=== PATIENT | female | born 1935 | race Caucasian/White ===

== ENCOUNTER 2025-01-10 14:00 | Outpatient (RCR) | payer MEDICARE, SELFPAY ==
[2024-12-27 13:32] VITALS: BP 132/95; PULSE 83; RESP 18; TEMP 36.3; BMI 44.0
--- NOTE | 2024-12-28 12:16 | WC ---
PHOTO 12/27/24 LLE EDEMA
--- NOTE | 2024-12-28 12:16 | WC ---
PHOTO 12/27/24 RLE EDEMA
--- NOTE | 2024-12-29 16:49 | HP.PCM_ITS ---
History of Present Illness Date of Service: 12/27/24 Chief Complaint: Venous stasis dermatitis of the lower extremities bilaterally History of Wound: This is an 89-year-old obese female who presented with a history of swelling and edema in her lower extremities, as well as venous stasis dermatitis in the gaiter areas bilaterally. The left lower extremity was more severely affected. The patient possesses graduated compression stockings, but has not been wearing them. She is obese, with a BMI of 44.0. Her activity is limited. She spends a great deal of each day sitting in idle fashion. She sleeps on a flat mattress at night. She has a long history of swelling and edema in her lower extremities. She denies a history of thrombophlebitis. She has had episodes of cellulitis in her lower extremities in the past, the most recent of which was treated with oral doxycycline. Her primary care physician has placed her on Lasix. Treatment of the dermatitic changes in the lower extremities has recently been by means of ABD's and Kerlix, as well as topical Aquaphor. [facility] Medical History Congestive heart failure Obstructive sleep apnea Diabetes mellitus type 2 with complications Hypothyroidism Hypertension Morbid obesity with BMI of 40.0-44.9, adult Lipodermatosclerosis of left lower extremity Schwartz phlebectatica paraplantaris Venous stasis dermatitis of both lower extremities Edema of both lower extremities Swelling of both lower extremities Home Medications ?Medication ?Instructions ?Recorded ?Last Taken ?Type amlodipine 5 mg tablet 5 mg PO DAILY ##30 09/08/13 Unknown Rx ferrous sulfate 325 mg (65 mg 325 mg PO DAILY@0800 ##3 0 09/08/13 Unknown Rx iron) tablet glimepiride 4 mg tablet 4 mg PO BREAKFAST ##30 09/08 Unknown Rx hydrocodone-acetaminophen 5-325mg 1 - 2 tab PO Q4H PRN PRN PAIN ##60 09/08/13 Unknown Rx 5mg-325mg losartan 100 mg tablet 100 mg PO DAILY ##30 3 Unknown Rx multivitamin,qi-vqjt-oyofvmyw 27 1 tab PO DAILY@0800 # #30 09/08/13 Unknown Rx mg-0.4 mg tablet (Therems-M) potassium chloride 20 mEq 20 meq PO DAILY ##30 3 Unknown Rx tablet,extended release(part/cryst) (Klor-Con M) thyroid (pork) 60 mg tablet 90 mg (1.5 x 60 mg) PO FRANCISCO LY@0600 09/08/13 Unknown Rx ([place] Thyroid) ##60 hydrochlorothiazide 25 mg tablet 25 mg PO DAILY #30 ta bs 09/09/13 Unknown Rx hydralazine 25 mg tablet 25 mg PO TID 12/27/24 Unknow n History levothyroxine 100 mcg tablet 100 mcg PO DAILY 12/27/24 Unknown History Allergy/AdvReac Type Severity Reaction Status Date / Time celecoxib (From Celebrex) Allergy Other Verified 12/27/24 13:44 ciprofloxacin (From Cipro) Allergy Itching Verified 12/27/24 13:44 ciprofloxacin HCl (From Allergy Itching Verified 12/27/24 13:44 Cipro) codeine Allergy Itching Verified 12/27/24 13:44 rofecoxib (From Vioxx) Allergy Other Verified 12/27/24 13:44 niacin AdvReac Itching Verified 12/27/24 13:44 Penicillins (PCN) AdvReac Hives Verified 12/27/24 13:44 Sulfa (Sulfonamide AdvReac Other Verified 12/27/24 13:44 Antibiotics) Surgical History History of total bilateral knee replacement (TKR) History of section Social History Smoking Status: Never smoker Vital Signs Vital Signs Vital Signs: Weight Weight: 233 lb Body Mass Index (BMI) 44.0 Debridement Note Debridement Note Post-Debridement Measurements and Additional Note: Post-Debridement Measurements/Treatment WC - Nurse 1 - General Ulcer Assessment Start: 12/27/24 13:31 Freq: Status: Active Protocol: PEDRO LUIS Activity Type Activity Date Activity User E-sign Co-sign Detail Recorded Client Recorded Date Recorded By Document 12/27/24 13:32 KW [id number] 12/27/24 13:41 KW 12/27/24 13:32 WC - Today's Visit Information Type of service Initial Visit Arrival Mode Ambulatory Accompanied by friend Patient Identification Verified (Name & Yes ) Height and Weight Height 5 ft 1 in Weight 233 lb Weight in Pounds 233.0 lbs Weight Measurement Method Estimated by Patient Body Mass Index (BMI) 44.0 BMI Classification Obese Vital Signs Temperature (97.8 F-99.1 F) 97.3 F L Temperature Source Temporal Pulse Rate (60-100) 83 Pulse Location Monitor Respiratory Rate (12-18) 18 Respiratory rate source Observation Oxygen Delivery Method Room Air Blood Pressure (90/60-120/80) 132/95 H Blood Pressure Mean 107 Source Monitor Position Semi-Fowlers Blood Pressure Location Left Arm History Since Last Visit- (Skip if this is Patient's initial visit) Left Footwear Regular Shoe Right Footwear Regular Shoe Pain Scale: 0-10 Numeric Is Patient Pain Free? No BLE -Intensity 2 -Alleviating Factors/Interventions Medicate when due,Inactivity/ Resting Lower Extremity Assessment/ Foot Assessment/ Toe Nail Assessment Right -Posterior Tibial Doppler Monophasic -Dorsalis Pedis Doppler Monophasic -Extremity Color Red,Hemosiderin -Hair Growth on Legs No -Hair Growth on Toes No -Thick No -Discolored No -Deformed No -Improper Length & Hygeine No Left -Posterior Tibial Doppler Monophasic -Dorsalis Pedis Doppler Monophasic -Extremity Color Red,Hemosiderin -Hair Growth on Legs No -Hair Growth on Toes No -Temperature of Extremity Cool -Thick No -Discolored No -Deformed No -Improper Length & Hygeine No Communication Assessment Preferred language Armenian Hemodialysis Patient Care Specialist Required No Able to Read Yes Able to Write Yes Communication Tools None Caregiver Communication Skills No Impairment Impairment Right Hearing Abillity Normal Left Hearing Abillity Normal Visual Assistive Devices Glasses Teaching Assessment Preferences Verbal,Written, Demonstration Barriers to Learning None Readiness To Learn Excellent Willingness to Engage in Self Management High Activies Readiness to Engage in Self Management High Activities Anxiety Level Calm Cooperation Cooperative Perception Coherent Interest in Health Problem Asks Questions Education Importance Acknowledges Need Does Patient Smoke tobacco or other Yes substances Smoking Status Never smoker Is Patient Diabetic Yes Functional Assessment Recent Decline in Ability to Perform Denies Any Declines Culture/Episcopal/Rural Carrier Associate Cultural/Episcopal Needs that may affect No Treatment Plan Would you allow our hospital bindery machine operator to No meet you for the purpose of spiritual/ emotional support? Rural Carrier Associate to contact place of christianity No WC - Nurse 1 - General Ulcer Measurement Start: 12/27/24 13:31 Freq: Status: Active Protocol: Activity Type Activity Date Activity User E-sign Co-sign Detail Recorded Client Recorded Date Recorded By Document 12/27/24 13:32 KW [id number] 12/27/24 13:41 KW 12/27/24 13:32 Wound Center Nurse 1 2 LLE cluster -Current Size (cm) - Length 0.1 -Current Size (cm) - Width 0.1 -Current Size (cm) - Depth 0 -Total Square Cm 0.01 -Date of Last Picture (Recall this 12/27/24 field) -Exudate Amt Small -Exudate Type Serosanguineous -Wound Margin Indistinct, Non -Visible -Granulation Amt Large (67-100%) -Granulation Quality Red -Texture (Leanne-wound Skin Appearance) Assessed -Moisture (Leanne-wound Skin Appearance) Assessed,Dry/ Scaly -Color (Leanne-wound Skin Appearance) Assessed, Erythema, Hemosiderin Staining -Temperature (Leanne-wound Skin No Abnormality Appearance) (Pt Warm) -Tenderness on Palpation (Leanne-wound No Skin Appearance) -Ulcer Cleansing Soap and Water -Foul Odor after Cleansing No 1 RLE CLUSTER -Current Size (cm) - Length 0.1 -Current Size (cm) - Width 0.1 -Current Size (cm) - Depth 0 -Total Square Cm 0.01 -Date of Last Picture (Recall this 12/27/24 field) -Exudate Amt Small -Exudate Type Serosanguineous -Wound Margin Distinct, Outline Attached -Granulation Amt Large (67-100%) -Granulation Quality Red -Texture (Leanne-wound Skin Appearance) Assessed -Moisture (Leanne-wound Skin Appearance) Assessed -Color (Leanne-wound Skin Appearance) Assessed, Erythema -Temperature (Leanne-wound Skin No Abnormality Appearance) (Pt Warm) -Tenderness on Palpation (Leanne-wound No Skin Appearance) -Ulcer Cleansing Soap and Water -Foul Odor after Cleansing No Right Calf (cm) 42.5 Right Ankle (cm) 23.5 Left Calf (cm) 43 Left Ankle (cm) 23.5 WC - Nurse 2 - General Ulcer CM Notes Start: 12/27/24 13:31 Freq: Status: Active Protocol: Activity Type Activity Date Activity User E-sign Co-sign Detail Recorded Client Recorded Date Recorded By Document 12/27/24 13:59 DS [id number] 12/27/24 14:04 DS 12/27/24 13:59 Wound Center Nurse 2 2 LLE cluster -Time 13:59 -Correct Patient Yes -Correct Side, Site, Position Yes -Procedure Performed No -Wound/Ulcer Outcome Not Healed 1 RLE CLUSTER -Time 13:59 -Correct Patient Yes -Procedure Performed No -Wound/Ulcer Outcome Not Healed Pain Scale: 0-10 Numeric Is Patient Pain Free? Yes WC - Nurse 3 - General Ulcer D/C NN Start: 12/27/24 13:31 Freq: Status: Active Protocol: Activity Type Activity Date Activity User E-sign Co-sign Detail Recorded Client Recorded Date Recorded By Document 12/27/24 14:35 KW [id number] 12/27/24 14:36 KW 12/27/24 14:35 Wound Care Center Nurse 3 BLE -Multi-Layered Wrap Application Unna Boot - Bilateral -Unna- Bilat (Qty applied) 1 Pain Scale: 0-10 Numeric Is Patient Pain Free? Yes WC - Visit Discharge Discharge Condition Stable Ambulatory Status Ambulatory Transportation Private Auto Medication Reconcilliation completed & No provided to patient/care provider Clinical Summary of Care Provided Yes Assessment/Plan Assessment/Plan (1) Venous stasis dermatitis of both lower extremities: CODE(S): I87.2 - Venous insufficiency (chronic) (peripheral) (2) Swelling of both lower extremities: CODE(S): M79.89 - Other specified soft tissue disorders (3) Edema of both lower extremities: CODE(S): R60.0 - Localized edema (4) Schwartz phlebectatica paraplantaris: CODE(S): R09.89 - Other specified symptoms and signs involving the circulatory and respiratory systems (5) Lipodermatosclerosis of left lower extremity: CODE(S): M79.3 - Panniculitis, unspecified (6) Morbid obesity with BMI of 40.0-44.9, adult: CODE(S): E66.01 - Morbid (severe) obesity due to excess calories; Z68.41 - Body mass index [BMI] 40.0-44.9, adult (7) Diabetes mellitus type 2 with complications: CODE(S): E11.8 - Type 2 diabetes mellitus with unspecified complications (8) History of section: CODE(S): Z98.891 - History of uterine scar from previous surgery (9) History of total bilateral knee replacement (TKR): CODE(S): Z96.653 - Presence of artificial knee joint, bilateral (10) Hypertension: CODE(S): I10 - Essential (primary) hypertension (11) Hypothyroidism: CODE(S): E03.9 - Hypothyroidism, unspecified (12) Obstructive sleep apnea: CODE(S): G47.33 - Obstructive sleep apnea (adult) (pediatric) (13) Congestive heart failure: CODE(S): I50.9 - Heart failure, unspecified
--- NOTE | 2024-12-29 17:00 | PCM.WC.HP ---
History of Present Illness Date of Service: 12/27/24 Chief Complaint: Venous stasis dermatitis of the lower extremities bilaterally History of Wound: This is an 89-year-old obese female who presented with a history of swelling and edema in her lower extremities, as well as venous stasis dermatitis in the gaiter areas bilaterally. The left lower extremity was more severely affected. The patient possesses graduated compression stockings, but has not been wearing them. She is obese, with a BMI of 44.0. Her activity is limited. She spends a great deal of each day sitting in idle fashion. She sleeps on a flat mattress at night. She has a long history of swelling and edema in her lower extremities. She denies a history of thrombophlebitis. She has had episodes of cellulitis in her lower extremities in the past, the most recent of which was treated with oral doxycycline. Her primary care physician has placed her on Lasix. Treatment of the dermatitic changes in the lower extremities has recently been by means of ABD's and Kerlix, as well as topical Aquaphor. 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 Venous stasis dermatitis of both lower extremities Edema of both lower extremities Swelling of both lower extremities Home Medications ?Medication ?Instructions ?Recorded ?Last Taken ?Type amlodipine 5 mg tablet 5 mg PO DAILY ##30 09/08/13 Unknown Rx ferrous sulfate 325 mg (65 mg 325 mg PO DAILY@0800 ##30 09/08/13 Unknown Rx iron) tablet glimepiride 4 mg tablet 4 mg PO BREAKFAST ##30 09/08/13 Unknown Rx hydrocodone-acetaminophen 5-325mg 1 - 2 tab PO Q4H PRN PRN PAIN ##60 09/08/13 Unknown Rx 5mg-325mg losartan 100 mg tablet 100 mg PO DAILY ##30 09/08/13 Unknown Rx multivitamin,hx-uepw-qpehrdvl 27 1 tab PO DAILY@0800 ##30 09/08/13 Unknown Rx mg-0.4 mg tablet (Therems-M) potassium chloride 20 mEq 20 meq PO DAILY ##30 09/08/13 Unknown Rx tablet,extended release(part/cryst) (Klor-Con M) thyroid (pork) 60 mg tablet 90 mg (1.5 x 60 mg) PO DAILY@0600 09/08/13 Unknown Rx ([place] Thyroid) ##60 hydrochlorothiazide 25 mg tablet 25 mg PO DAILY #30 tabs 09/09/13 Unknown Rx hydralazine 25 mg tablet 25 mg PO TID 12/27/24 Unknown History levothyroxine 100 mcg tablet 100 mcg PO DAILY 12/27/24 Unknown History Allergy/AdvReac Type Severity Reaction Status Date / Time celecoxib (From Celebrex) Allergy Other Verified 12/27/24 13:44 ciprofloxacin (From Cipro) Allergy Itching Verified 12/27/24 13:44 ciprofloxacin HCl (From Allergy Itching Verified 12/27/24 13:44 Cipro) codeine Allergy Itching Verified 12/27/24 13:44 rofecoxib (From Vioxx) Allergy Other Verified 12/27/24 13:44 niacin AdvReac Itching Verified 12/27/24 13:44 Penicillins (PCN) AdvReac Hives Verified 12/27/24 13:44 Sulfa (Sulfonamide AdvReac Other Verified 12/27/24 13:44 Antibiotics) no significant family history Surgical History History of total bilateral knee replacement (TKR) History of section Social History Smoking Status: Never smoker Vital Signs Vital Signs Vital Signs: Weight Weight: 233 lb Body Mass Index (BMI) 44.0 Physical Exam Const alert, oriented x3, no apparent distress, no limitations, healthy appearing and well nourished Constitutional Narrative: The patient is morbidly obese, with a BMI of 44.0. General Appearance: cooperative, comfortable, well kempt and well developed Orientation / Consciousness: awake, oriented to person, oriented to place and oriented to time Exam Limitations: no limitations HEENT normocephalic and head/scalp atraumatic Head and Scalp: normal to inspection, normocephalic and atraumatic Face and Sinus: normal facial exam Nose: external nose normal External Ear: external ears normal Eyes EOMs intact bilaterally General Eye: normal appearance of both eyes Neck full ROM Resp normal respiratory effort, normal air movement, no retractions and no use of accessory muscles Effort and Inspection: able to speak in complete sentences Extremity no calf tenderness General Extremity: Negative for clubbing or cyanosis Skin Wound Narrative: Venous stasis dermatitis is noted in the lower extremities bilaterally, involving the gaiter areas. The dermatitis is eczematous and erythematous in nature. There are no ana open ulcerations. The dermatitis is more severe in the left lower extremity than that on the right. The left lower extremity dermatitic changes are associated with lipodermatosclerosis and hyperpigmentation. Swelling and edema in the lower extremities are noted bilaterally. Schwartz phlebectatica is noted near the medial malleolar line bilaterally. Neuro oriented x3, CN's II-XII intact bilaterally, moves all extremities, no focal motor deficits and no sensory deficits noted Sensorium / Orientation: awake, alert, oriented to person, oriented to place and oriented to time Cranial Nerves: CN normal except as noted Speech: speech normal Psych Appearance: grossly normal and appropriate Attitude: calm Activity / Motor Behavior: appropriate eye contact Speech: normal speech Mood & Affect: euthymic mood Thought Process: normal thought process Thought Content: normal thought content Attention / Concentration: attention grossly intact Debridement Note Debridement Note No debridement was completed: No debridement was completed today (There are no open wounds or ulcerations.) Post-Debridement Measurements and Additional Note: Post-Debridement Measurements/Treatment - Nurse 1 - General Ulcer Assessment Start: 12/27/24 13:31 Freq: Status: Active Protocol: PEDRO LUIS Activity Type Activity Date Activity User E-sign Co-sign Detail Recorded Client Recorded Date Recorded By Document 12/27/24 13:32 KW [id number] 12/27/24 13:41 KW 12/27/24 13:32 - Today's Visit Information Type of service Initial Visit Arrival Mode Ambulatory Accompanied by friend Patient Identification Verified (Name & Yes ) Height and Weight Height 5 ft 1 in Weight 233 lb Weight in Pounds 233.0 lbs Weight Measurement Method Estimated by Patient Body Mass Index (BMI) 44.0 BMI Classification Obese Vital Signs Temperature (97.8 F-99.1 F) 97.3 F L Temperature Source Temporal Pulse Rate (60-100) 83 Pulse Location Monitor Respiratory Rate (12-18) 18 Respiratory rate source Observation Oxygen Delivery Method Room Air Blood Pressure (90/60-120/80) 132/95 H Blood Pressure Mean 107 Source Monitor Position Semi-Fowlers Blood Pressure Location Left Arm History Since Last Visit- (Skip if this is Patient's initial visit) Left Footwear Regular Shoe Right Footwear Regular Shoe Pain Scale: 0-10 Numeric Is Patient Pain Free? No BLE -Intensity 2 -Alleviating Factors/Interventions Medicate when due,Inactivity/ Resting Lower Extremity Assessment/ Foot Assessment/ Toe Nail Assessment Right -Posterior Tibial Doppler Monophasic -Dorsalis Pedis Doppler Monophasic -Extremity Color Red,Hemosiderin -Hair Growth on Legs No -Hair Growth on Toes No -Thick No -Discolored No -Deformed No -Improper Length & Hygeine No Left -Posterior Tibial Doppler Monophasic -Dorsalis Pedis Doppler Monophasic -Extremity Color Red,Hemosiderin -Hair Growth on Legs No -Hair Growth on Toes No -Temperature of Extremity Cool -Thick No -Discolored No -Deformed No -Improper Length & Hygeine No Communication Assessment Preferred language [place] Website Project Manager Required No Able to Read Yes Able to Write Yes Communication Tools None Caregiver Communication Skills No Impairment Impairment Right Hearing Abillity Normal Left Hearing Abillity Normal Visual Assistive Devices Glasses Teaching Assessment Preferences Verbal,Written, Demonstration Barriers to Learning None Readiness To Learn Excellent Willingness to Engage in Self Management High Activies Readiness to Engage in Self Management High Activities Anxiety Level Calm Cooperation Cooperative Perception Coherent Interest in Health Problem Asks Questions Education Importance Acknowledges Need Does Patient Smoke tobacco or other Yes substances Smoking Status Never smoker Is Patient Diabetic Yes Functional Assessment Recent Decline in Ability to Perform Denies Any Declines 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 Candy Rolling Machine Operator to contact place of christianity No WC - Nurse 1 - General Ulcer Measurement Start: 12/27/24 13:31 Freq: Status: Active Protocol: Activity Type Activity Date Activity User E-sign Co-sign Detail Recorded Client Recorded Date Recorded By Document 12/27/24 13:32 KW [id number] 12/27/24 13:41 KW 12/27/24 13:32 Wound Center Nurse 1 2 LLE cluster -Current Size (cm) - Length 0.1 -Current Size (cm) - Width 0.1 -Current Size (cm) - Depth 0 -Total Square Cm 0.01 -Date of Last Picture (Recall this 12/27/24 field) -Exudate Amt Small -Exudate Type Serosanguineous -Wound Margin Indistinct, Non -Visible -Granulation Amt Large (67-100%) -Granulation Quality Red -Texture (Leanne-wound Skin Appearance) Assessed -Moisture (Leanne-wound Skin Appearance) Assessed,Dry/ Scaly -Color (Leanne-wound Skin Appearance) Assessed, Erythema, Hemosiderin Staining -Temperature (Leanne-wound Skin No Abnormality Appearance) (Pt Warm) -Tenderness on Palpation (Leanne-wound No Skin Appearance) -Ulcer Cleansing Soap and Water -Foul Odor after Cleansing No 1 RLE CLUSTER -Current Size (cm) - Length 0.1 -Current Size (cm) - Width 0.1 -Current Size (cm) - Depth 0 -Total Square Cm 0.01 -Date of Last Picture (Recall this 12/27/24 field) -Exudate Amt Small -Exudate Type Serosanguineous -Wound Margin Distinct, Outline Attached -Granulation Amt Large (67-100%) -Granulation Quality Red -Texture (Leanne-wound Skin Appearance) Assessed -Moisture (Leanne-wound Skin Appearance) Assessed -Color (Leanne-wound Skin Appearance) Assessed, Erythema -Temperature (Leanne-wound Skin No Abnormality Appearance) (Pt Warm) -Tenderness on Palpation (Leanne-wound No Skin Appearance) -Ulcer Cleansing Soap and Water -Foul Odor after Cleansing No Right Calf (cm) 42.5 Right Ankle (cm) 23.5 Left Calf (cm) 43 Left Ankle (cm) 23.5 WC - Nurse 2 - General Ulcer CM Notes Start: 12/27/24 13:31 Freq: Status: Active Protocol: Activity Type Activity Date Activity User E-sign Co-sign Detail Recorded Client Recorded Date Recorded By Document 12/27/24 13:59 DS [id number] 12/27/24 14:04 DS 12/27/24 13:59 Wound Center Nurse 2 2 LLE cluster -Time 13:59 -Correct Patient Yes -Correct Side, Site, Position Yes -Procedure Performed No -Wound/Ulcer Outcome Not Healed 1 RLE CLUSTER -Time 13:59 -Correct Patient Yes -Procedure Performed No -Wound/Ulcer Outcome Not Healed Pain Scale: 0-10 Numeric Is Patient Pain Free? Yes WC - Nurse 3 - General Ulcer D/C NN Start: 12/27/24 13:31 Freq: Status: Active Protocol: Activity Type Activity Date Activity User E-sign Co-sign Detail Recorded Client Recorded Date Recorded By Document 12/27/24 14:35 CARY [id number] 12/27/24 14:36 KW 12/27/24 14:35 Wound Care Center Nurse 3 BLE -Multi-Layered Wrap Application Unna Boot - Bilateral -Unna- Bilat (Qty applied) 1 Pain Scale: 0-10 Numeric Is Patient Pain Free? Yes WC - Visit Discharge Discharge Condition Stable Ambulatory Status Ambulatory Transportation Private Auto Medication Reconcilliation completed & No provided to patient/care provider Clinical Summary of Care Provided Yes Charges/Coding Visit Charges Office Visits / Consults: [id number] OV L4 New 45min Assessment/Plan Assessment/Plan (1) Venous stasis dermatitis of both lower extremities: CODE(S): I87.2 - Venous insufficiency (chronic) (peripheral) (2) Edema of both lower extremities: CODE(S): R60.0 - Localized edema (3) Swelling of both lower extremities: CODE(S): M79.89 - Other specified soft tissue disorders (4) Schwartz phlebectatica paraplantaris: CODE(S): R09.89 - Other specified symptoms and signs involving the circulatory and respiratory systems (5) Lipodermatosclerosis of left lower extremity: CODE(S): M79.3 - Panniculitis, unspecified (6) Morbid obesity with BMI of 40.0-44.9, adult: CODE(S): E66.01 - Morbid (severe) obesity due to excess calories; Z68.41 - Body mass index [BMI] 40.0-44.9, adult (7) Obstructive sleep apnea: CODE(S): G47.33 - Obstructive sleep apnea (adult) (pediatric) (8) Diabetes mellitus type 2 with complications: CODE(S): E11.8 - Type 2 diabetes mellitus with unspecified complications (9) Hypothyroidism: CODE(S): E03.9 - Hypothyroidism, unspecified (10) Hypertension: CODE(S): I10 - Essential (primary) hypertension (11) History of total bilateral knee replacement (TKR): CODE(S): Z96.653 - Presence of artificial knee joint, bilateral (12) History of section: CODE(S): Z98.891 - History of uterine scar from previous surgery (13) Congestive heart failure: CODE(S): I50.9 - Heart failure, unspecified PLAN: Plan This is a morbidly obese 89-year-old female who presented with bilateral lower extremity venous stasis dermatitis, and a history of swelling and edema in her lower extremities. She denied a history of lower extremity thrombophlebitis, but has had several episodes of lower extremity cellulitis in the past. She has recently been treated by her primary care physician with an oral course of doxycycline. We have discussed the conservative measures appropriate to the management of her lower extremity swelling and edema. She has been encouraged to continue sleeping on a flat surface at night. Leg elevation has been encouraged during daytime hours. Leg elevation is to be to heart level, or higher, as much as possible prolonged idle sitting has been discouraged. Ambulation has been encouraged. Weight loss has also been recommended. We are to implement compression to the lower extremities by means of an Unna compression boots, which will be applied bilaterally. These will be changed twice weekly. Because of the patient's history of congestive heart failure, the amount of compression initially applied will be conservative. The patient has been advised to seek medical attention should she experience any onset of shortness of breath, etc. The patient is to return in 1 week for reevaluation. Total time: 45 minutes
[2024-12-30 10:01] VITALS: BP 186/72; PULSE 76; RESP 16; TEMP 35.6; BMI 44.0
[2025-01-03 14:02] VITALS: BP 164/71; PULSE 73; RESP 14; TEMP 36.1; BMI 44.0
--- NOTE | 2025-01-05 11:04 | HP.PCM_ITS ---
History of Present Illness Date of Service: 01/03/25 Chief Complaint: Venous stasis dermatitis of the lower extremities bilaterally History of Wound: This is an 89-year-old obese female who presented with a history of swelling and edema in her lower extremities, as well as venous stasis dermatitis in the gaiter areas bilaterally. The left lower extremity was more severely affected. The patient possesses graduated compression stockings, but has not been wearing them. She is uncertain as to the degree of compression. She is obese, with a BMI of 44.0. Her activity is limited. She spends a great deal of each day sitting in idle fashion. She sleeps on a flat mattress at night. She has a long history of swelling and edema in her lower extremities. She denies a history of thrombophlebitis. She has had episodes of cellulitis in her lower extremities in the past, the most recent of which was treated with oral doxycycline. Her primary care physician has placed her on Lasix. Treatment of the dermatitic changes in the lower extremities has recently been by means of ABD's and Kerlix, as well as topical Aquaphor. 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 Venous stasis dermatitis of both lower extremities Edema of both lower extremities Swelling of both lower extremities Home Medications ?Medication ?Instructions ?Recorded ?Last Taken ?Type amlodipine 5 mg tablet 5 mg PO DAILY ##30 09/08/13 Unknown Rx ferrous sulfate 325 mg (65 mg 325 mg PO DAILY@0800 ##3 0 09/08/13 Unknown Rx iron) tablet glimepiride 4 mg tablet 4 mg PO BREAKFAST ##30 09/08 Unknown Rx hydrocodone-acetaminophen 5-325mg 1 - 2 tab PO Q4H PRN PRN PAIN ##60 09/08/13 Unknown Rx 5mg-325mg losartan 100 mg tablet 100 mg PO DAILY ##30 3 Unknown Rx multivitamin,mv-[id number] 27 1 tab PO DAILY@0800 # #30 09/08/13 Unknown Rx mg-0.4 mg tablet (Therems-M) potassium chloride 20 mEq 20 meq PO DAILY ##30 3 Unknown Rx tablet,extended release(part/cryst) (Klor-Con M) thyroid (pork) 60 mg tablet 90 mg (1.5 x 60 mg) PO FRANCISCO LY@0600 09/08/13 Unknown Rx (Acme Thyroid) ##60 hydrochlorothiazide 25 mg tablet 25 mg PO DAILY #30 ta bs 09/09/13 Unknown Rx hydralazine 25 mg tablet 25 mg PO TID 12/27/24 Unknow n History levothyroxine 100 mcg tablet 100 mcg PO DAILY 12/27/24 Unknown History Allergy/AdvReac Type Severity Reaction Status Date / Time celecoxib (From Celebrex) Allergy Other Verified 12/27/24 13:44 ciprofloxacin (From Cipro) Allergy Itching Verified 12/27/24 13:44 ciprofloxacin HCl (From Allergy Itching Verified 12/27/24 13:44 Cipro) codeine Allergy Itching Verified 12/27/24 13:44 rofecoxib (From Vioxx) Allergy Other Verified 12/27/24 13:44 niacin AdvReac Itching Verified 12/27/24 13:44 Penicillins (PCN) AdvReac Hives Verified 12/27/24 13:44 Sulfa (Sulfonamide AdvReac Other Verified 12/27/24 13:44 Antibiotics) Family History no significant family his Surgical History History of total bilateral knee replacement (TKR) History of section Social History Smoking Status: Never smoker Vital Signs Vital Signs Vital Signs: Weight Weight: 233 lb Body Mass Index (BMI) 44.0 Physical Exam Const alert, oriented x3, no apparent distress, no limitations, healthy appearing and well nourished Constitutional Narrative: The patient is morbidly obese, with a BMI of 44.0. General Appearance: cooperative, comfortable, well kempt and well developed Orientation / Consciousness: awake, oriented to person, oriented to place and oriented to time Exam Limitations: no limitations HEENT normocephalic and head/scalp atraumatic Head and Scalp: normal to inspection, normocephalic and atraumatic Face and Sinus: normal facial exam Nose: external nose normal External Ear: external ears normal Eyes EOMs intact bilaterally General Eye: normal appearance of both eyes Neck full ROM Resp normal respiratory effort, normal air movement, no retractions and no use of accessory muscles Effort and Inspection: able to speak in complete sentences Extremity no calf tenderness General Extremity: Negative for clubbing or cyanosis Skin Wound Narrative: Venous stasis dermatitis is noted in the lower extremities bilaterally, i nvolving the gaiter areas. The dermatitis is eczematous and erythematous in nature. It is worse in the patient's left lower extremity as compared to the right. There are no ana open ulcerations. The left lower extremity dermatitic changes are associated with lipodermatosclerosis and hyperpigmentation. Swelling and edema in the lower extremities are noted bilaterally, though improved as compared to the prior week. Schwartz phlebectatica is noted near the medial malleoli bilaterally. Neuro oriented x3, CN's II-XII intact bilaterally, moves all extremities, no focal motor deficits and no sensory deficits noted Sensorium / Orientation: awake, alert, oriented to person, oriented to place and oriented to time Cranial Nerves: CN normal except as noted Speech: speech normal Psych Appearance: grossly normal and appropriate Attitude: calm Activity / Motor Behavior: appropriate eye contact Speech: normal speech Mood & Affect: euthymic mood Thought Process: normal thought process Thought Content: normal thought content Attention / Concentration: attention grossly intact Debridement Note Debridement Note No debridement was completed: No debridement was completed today (There are no open wounds or ulcerations.) Post-Debridement Measurements and Additional Note: Post-Debridement Measurements/Treatment - Nurse 1 - General Ulcer Assessment Start: 12/27/24 13:31 Freq: Status: Active Protocol: PEDRO LUIS Activity Type Activity Date Activity User E-sign Co-sign Detail Recorded Client Recorded Date Recorded By Document 12/27/24 13:32 KW [id number] 12/27/24 13:41 KW Document 12/30/24 10:01 KW [id number] 12/30/24 10:13 KW Document 01/03/25 14:02 ML [id number] 01/03/25 14:06 ML 12/27/24 12/30/24 01/03/25 13:32 10:01 14:02 - Today's Visit Information Type of service Initial Visit Nurse-only Follow-up Visit 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 ) Arrival Mode Ambulatory Ambulatory Ambulatory Transfer Assistance None Accompanied by friend friend Patient Identification Verified (Name & Yes Yes Yes ) Patient Requires Transmission-Based No Precautions Height and Weight Height 5 ft 1 in Weight 233 lb Weight in Pounds 233.0 lbs Weight Measurement Method Estimated by Patient Body Mass Index (BMI) 44.0 44.0 44.0 BMI Classification Obese Obese Obese Vital Signs Temperature (97.8 F-99.1 F) 97.3 F L 96.0 F L 97 F L Temperature Source Temporal Temporal Temporal Pulse Rate (60-100) 83 76 73 Pulse Location Monitor Monitor Monitor Respiratory Rate (12-18) 18 16 14 Respiratory rate source Observation Observation Observation Oxygen Delivery Method Room Air Room Air Blood Pressure (90/60-120/80) 132/95 H 186/72 H 164/71 H Blood Pressure Mean 107 110 102 Source Monitor Monitor Monitor Position Semi-Fowlers Semi-Fowlers Sitting Blood Pressure Location Left Arm Left Arm Right Forearm History Since Last Visit- (Skip if this is Patient's initial visit) Have you changed medications since your No No last visit? Any new allergies or adverse reactions No No Had a fall/change in ADL's that may No No increase risk of falls Signs or symptoms of abuse and/or No No neglect since last visit Have you been in the hospital since your No No last visit? Has dressing in place as prescribed Yes No Has compression in place as prescribed Yes N/A Has offloadiing in place as prescribed N/A N/A Experienced any changes in pain level or No No management Left Footwear Regular Shoe Regular Shoe Right Footwear Regular Shoe Regular Shoe Pain Scale: 0-10 Numeric Is Patient Pain Free? No Yes Yes BLE -Intensity 2 -Alleviating Factors/Interventions Medicate when due,Inactivity/ Resting Lower Extremity Assessment/ Foot Assessment/ Toe Nail Assessment Right -Posterior Tibial Doppler Monophasic -Dorsalis Pedis Doppler Monophasic -Extremity Color Red,Hemosiderin -Hair Growth on Legs No -Hair Growth on Toes No -Thick No -Discolored No -Deformed No -Improper Length & Hygeine No Left -Posterior Tibial Doppler Monophasic -Dorsalis Pedis Doppler Monophasic -Extremity Color Red,Hemosiderin -Hair Growth on Legs No -Hair Growth on Toes No -Temperature of Extremity Cool -Thick No -Discolored No -Deformed No -Improper Length & Hygeine No Communication Assessment Preferred language Kazakh Chemical Preparer Required No Able to Read Yes Able to Write Yes Communication Tools None Caregiver Communication Skills No Impairment Impairment Right Hearing Abillity Normal Left Hearing Abillity Normal Visual Assistive Devices Glasses Teaching Assessment Preferences Verbal,Written, Demonstration Barriers to Learning None Readiness To Learn Excellent Willingness to Engage in Self Management High Activies Readiness to Engage in Self Management High Activities Anxiety Level Calm Cooperation Cooperative Perception Coherent Interest in Health Problem Asks Questions Education Importance Acknowledges Need Does Patient Smoke tobacco or other Yes substances Smoking Status Never smoker Is Patient Diabetic Yes Functional Assessment Recent Decline in Ability to Perform Denies Any Declines Culture/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 Electrical Designer Drafter to contact place of hindu No WC - Nurse 1 - General Ulcer Measurement Start: 12/27/24 13:31 Freq: Status: Active Protocol: Activity Type Activity Date Activity User E-sign Co-sign Detail Recorded Client Recorded Date Recorded By Document 12/27/24 13:32 KW [id number] 12/27/24 13:41 KW Document 01/03/25 14:02 ML [id number] 01/03/25 14:06 ML 12/27/24 01/03/25 13:32 14:02 Wound Center Nurse 1 2 LLE cluster -Current Size (cm) - Length 0.1 0.1 -Current Size (cm) - Width 0.1 0.1 -Current Size (cm) - Depth 0 0.1 -Total Square Cm 0.01 0.01 -Date of Last Picture (Recall this 12/27/24 field) -Exudate Amt Small Small -Exudate Type Serosanguineous Serosanguineous -Wound Margin Indistinct, Non -Visible -Granulation Amt Large (67-100%) None Present (0 %) -Granulation Quality Red -Necrosis Amt None Present (0 %) -Texture (Leanne-wound Skin Appearance) Assessed Assessed -Moisture (Leanne-wound Skin Appearance) Assessed,Dry/ Dry/Scaly Scaly -Color (Leanne-wound Skin Appearance) Assessed, Erythema, Erythema, Hemosiderin Hemosiderin Staining Staining -Temperature (Leanne-wound Skin No Abnormality No Abnormality Appearance) (Pt Warm) (Pt Warm) -Tenderness on Palpation (Leanne-wound No No Skin Appearance) -Ulcer Cleansing Soap and Water Soap and Water -Foul Odor after Cleansing No No 1 RLE CLUSTER -Current Size (cm) - Length 0.1 0.1 -Current Size (cm) - Width 0.1 0.1 -Current Size (cm) - Depth 0 0.1 -Total Square Cm 0.01 0.01 -Date of Last Picture (Recall this 12/27/24 field) -Exudate Amt Small None Present -Exudate Type Serosanguineous Serosanguineous -Wound Margin Distinct, Outline Attached -Granulation Amt Large (67-100%) None Present (0 %) -Granulation Quality Red -Slough/Fibrin No -Necrosis Amt None Present (0 %) -Texture (Leanne-wound Skin Appearance) Assessed Assessed -Moisture (Leanne-wound Skin Appearance) Assessed Assessed -Color (Leanne-wound Skin Appearance) Assessed, Assessed Erythema -Temperature (Leanne-wound Skin No Abnormality No Abnormality Appearance) (Pt Warm) (Pt Warm) -Tenderness on Palpation (Leanne-wound No No Skin Appearance) -Ulcer Cleansing Soap and Water Soap and Water -Foul Odor after Cleansing No No Right Calf (cm) 42.5 39.5 Right Ankle (cm) 23.5 24.5 Left Calf (cm) 43 41 Left Ankle (cm) 23.5 24 WC - Nurse 2 - General Ulcer CM Notes Start: 12/27/24 13:31 Freq: Status: Active Protocol: Activity Type Activity Date Activity User E-sign Co-sign Detail Recorded Client Recorded Date Recorded By Document 12/27/24 13:59 DS [id number] 12/27/24 14:04 DS Document 01/03/25 14:22 DS [id number] 01/03/25 14:32 DS 12/27/24 01/03/25 13:59 14:22 Wound Center Nurse 2 2 LLE cluster -Time 13:59 14:22 -Correct Patient Yes Yes -Correct Side, Site, Position Yes Yes -Procedure Performed No No -Wound/Ulcer Outcome Not Healed Not Healed 1 RLE CLUSTER -Time 13:59 14:22 -Correct Patient Yes Yes -Correct Side, Site, Position Yes -Procedure Performed No No -Wound/Ulcer Outcome Not Healed Not Healed Pain Scale: 0-10 Numeric Is Patient Pain Free? Yes Yes WC - Nurse 3 - General Ulcer D/C NN Start: 12/27/24 13:31 Freq: Status: Active Protocol: Activity Type Activity Date Activity User E-sign Co-sign Detail Recorded Client Recorded Date Recorded By Document 12/27/24 14:35 KW [id number] 12/27/24 14:36 KW Document 12/30/24 10:13 KW [id number] 12/30/24 10:14 KW Document 01/03/25 14:46 RB [id number] 01/03/25 14:56 RB 12/27/24 12/30/24 01/03/25 14:35 10:13 14:46 Wound Care Center Nurse 3 BLE -Multi-Layered Wrap Application Unna Boot - Unna Boot - Unna Boot - Bilateral Bilateral Bilateral -Unna- Bilat (Qty applied) 1 1 1 Pain Scale: 0-10 Numeric Is Patient Pain Free? Yes Yes Yes WC - Visit Discharge Discharge Condition Stable Stable Stable Ambulatory Status Ambulatory Ambulatory Ambulatory Transportation Private Auto Private Auto Private Auto Medication Reconcilliation completed & No No No provided to patient/care provider Clinical Summary of Care Provided Yes Yes Yes Charges/Coding Visit Charges Office Visits / Consults: 52151 OV L3 Est 20min Assessment/Plan Assessment/Plan (1) Venous stasis dermatitis of both lower extremities: CODE(S): I87.2 - Venous insufficiency (chronic) (peripheral) (2) Edema of both lower extremities: CODE(S): R60.0 - Localized edema (3) Swelling of both lower extremities: CODE(S): M79.89 - Other specified soft tissue disorders (4) Schwartz phlebectatica paraplantaris: CODE(S): R09.89 - Other specified symptoms and signs involving the circulatory and respiratory systems (5) Lipodermatosclerosis of left lower extremity: CODE(S): M79.3 - Panniculitis, unspecified (6) Morbid obesity with BMI of 40.0-44.9, adult: CODE(S): E66.01 - Morbid (severe) obesity due to excess calories; Z68.41 - Body mass index [BMI] 40.0-44.9, adult (7) Obstructive sleep apnea: CODE(S): G47.33 - Obstructive sleep apnea (adult) (pediatric) (8) Diabetes mellitus type 2 with complications: CODE(S): E11.8 - Type 2 diabetes mellitus with unspecified complications (9) Hypothyroidism: CODE(S): E03.9 - Hypothyroidism, unspecified (10) Hypertension: CODE(S): I10 - Essential (primary) hypertension (11) History of total bilateral knee replacement (TKR): CODE(S): Z96.653 - Presence of artificial knee joint, bilateral (12) History of section: CODE(S): Z98.891 - History of uterine scar from previous surgery (13) Congestive heart failure: CODE(S): I50.9 - Heart failure, unspecified PLAN: Plan This is a morbidly obese 89-year-old female who presented with bilateral lower extremity venous stasis dermatitis, and a history of swelling and edema in her lower extremities. She denied a history of lower extremity thrombophlebitis, but has had several episodes of lower extremity cellulitis in the past. She has recently been treated by her primary care physician with an oral course of doxycycline. We have discussed the conservative measures appropriate to the management of her lower extremity swelling and edema. She has been encouraged to continue sleeping on a flat surface at night. Leg elevation has been encouraged during daytime hours. Leg elevation is to be to heart level, or higher, as much as possible. Prolonged idle sitting has been discouraged. Ambulation has been encouraged. Weight loss has also been recommended. We are to continue compression to the lower extremities by means of Unna compression boots, which will be applied bilaterally. These will be changed twice weekly. This regimen has yielded improvement just within the last week. The patient has expressed her concerns regarding her limited financial resources relative to weekly visits to our facility. We have discussed the goals and expectations relative to current management. If the patient remains compliant with conservative measures such as leg elevation, avoidance of idle standing and sitting, etc., It is possible that she may be suitable for discharge within the next several weeks. So as to provide the patient with a long-term form of compression to her lower extremities, we have discussed the available options. She has indicated her preference to procure CircAid Velcro compression garments for her lower extremities. Efforts will be made to obtain the CircAid compression garment for the patient to her insurance plan. The patient is to return in 1 week for reevaluation. Total time: 25 minutes
[2025-01-06 12:32] VITALS: BP 164/70; PULSE 76; RESP 18; TEMP 36.1; BMI 44.0
[2025-01-10 14:21] VITALS: BP 182/63; PULSE 78; RESP 18; TEMP 36.1; BMI 44.0
--- NOTE | 2025-01-11 10:03 | WC ---
PHOTO 01/10/25 BLE EDEMA
--- NOTE | 2025-01-11 10:43 | HP.PCM_ITS ---
History of Present Illness Date of Service: 01/10/25 Chief Complaint: Venous stasis dermatitis of the lower extremities bilaterally History of Wound: This is an 89-year-old obese female who presented with a history of swelling and edema in her lower extremities, as well as venous stasis dermatitis in the gaiter areas bilaterally. The left lower extremity was more severely affected. The patient possesses graduated compression stockings, but had not been wearing them. She is uncertain as to the degree of compression. She is obese, with a BMI of 44.0. Her activity is limited. She spends a great deal of each day sitting in idle fashion. She sleeps on a flat mattress at night. She has a long history of swelling and edema in her lower extremities. She denied a history of thrombophlebitis. She has had episodes of cellulitis in her lower extremities in the past, the most recent of which was treated with oral doxycycline. Her primary care physician placed her on Lasix. Treatment of the dermatitic changes in the lower extremities had recently been by means of ABD's and Kerlix, as well as topical Aquaphor. 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 Venous stasis dermatitis of both lower extremities Edema of both lower extremities Swelling of both lower extremities Home Medications ?Medication ?Instructions ?Recorded ?Last Taken ?Type amlodipine 5 mg tablet 5 mg PO DAILY ##30 09/08/13 Unknown Rx ferrous sulfate 325 mg (65 mg 325 mg PO DAILY@0800 ##3 0 09/08/13 Unknown Rx iron) tablet glimepiride 4 mg tablet 4 mg PO BREAKFAST ##30 09/08 Unknown Rx hydrocodone-acetaminophen 5-325mg 1 - 2 tab PO Q4H PRN PRN PAIN ##60 09/08/13 Unknown Rx 5mg-325mg losartan 100 mg tablet 100 mg PO DAILY ##30 3 Unknown Rx multivitamin,fp-lbbf-wdylvyhg 27 1 tab PO DAILY@0800 # #30 09/08/13 Unknown Rx mg-0.4 mg tablet (Therems-M) potassium chloride 20 mEq 20 meq PO DAILY ##30 3 Unknown Rx tablet,extended release(part/cryst) (Klor-Con M) thyroid (pork) 60 mg tablet 90 mg (1.5 x 60 mg) PO FRANCISCO LY@0600 09/08/13 Unknown Rx ([place] Thyroid) ##60 hydrochlorothiazide 25 mg tablet 25 mg PO DAILY #30 ta bs 09/09/13 Unknown Rx hydralazine 25 mg tablet 25 mg PO TID 12/27/24 Unknow n History levothyroxine 100 mcg tablet 100 mcg PO DAILY 12/27/24 Unknown History Allergy/AdvReac Type Severity Reaction Status Date / Time celecoxib (From Celebrex) Allergy Other Verified 12/27/24 13:44 ciprofloxacin (From Cipro) Allergy Itching Verified 12/27/24 13:44 ciprofloxacin HCl (From Allergy Itching Verified 12/27/24 13:44 Cipro) codeine Allergy Itching Verified 12/27/24 13:44 rofecoxib (From Vioxx) Allergy Other Verified 12/27/24 13:44 niacin AdvReac Itching Verified 12/27/24 13:44 Penicillins (PCN) AdvReac Hives Verified 12/27/24 13:44 Sulfa (Sulfonamide AdvReac Other Verified 12/27/24 13:44 Antibiotics) Family History no significant family his Surgical History History of total bilateral knee replacement (TKR) History of section Social History Smoking Status: Never smoker Vital Signs Vital Signs Vital Signs: 01/10/25 14:21 Temperature 97 F L Temperature Source Temporal Pulse Rate 78 Respiratory Rate 18 Blood Pressure 182/63 H Blood Pressure Mean 102 Blood Pressure Source Monitor Blood Pressure Position Semi-Fowlers Blood Pressure Location Left Arm Weight Weight: 233 lb Body Mass Index (BMI) 44.0 Physical Exam Const alert, oriented x3, no apparent distress, no limitations, healthy appearing and well nourished Constitutional Narrative: The patient is morbidly obese, with a BMI of 44.0. General Appearance: cooperative, comfortable, well kempt and well developed Orientation / Consciousness: awake, oriented to person, oriented to place and oriented to time Exam Limitations: no limitations HEENT normocephalic and head/scalp atraumatic Head and Scalp: normal to inspection, normocephalic and atraumatic Face and Sinus: normal facial exam Nose: external nose normal External Ear: external ears normal Eyes EOMs intact bilaterally General Eye: normal appearance of both eyes Neck full ROM Resp normal respiratory effort, normal air movement, no retractions and no use of accessory muscles Effort and Inspection: able to speak in complete sentences Extremity no calf tenderness General Extremity: Negative for clubbing or cyanosis Skin Wound Narrative: Venous stasis dermatitis persists in the lower extremities bilaterally, involving the gaiter areas. The dermatitis is eczematous and erythematous in nature. It is worse in the patient's left lower extremity as compared to the right. There has been improvement within the last week. There are no ana open ulcerations, although there are areas of denuded epithelium. The left l ower extremity dermatitic changes are associated with lipodermatosclerosis and hyperpigmentation. Swelling and edema in the lower extremities are noted bilaterally, though improving. Schwartz phlebectatica is noted near the medial malleoli bilaterally. Neuro oriented x3, CN's II-XII intact bilaterally, moves all extremities, no focal motor deficits and no sensory deficits noted Sensorium / Orientation: awake, alert, oriented to person, oriented to place and oriented to time Cranial Nerves: CN normal except as noted Speech: speech normal Psych Appearance: grossly normal and appropriate Attitude: calm Activity / Motor Behavior: appropriate eye contact Speech: normal speech Mood & Affect: euthymic mood Thought Process: normal thought process Thought Content: normal thought content Attention / Concentration: attention grossly intact Debridement Note Debridement Note No debridement was completed: No debridement was completed today Post-Debridement Measurements and Additional Note: Post-Debridement Measurements/Treatment JOSE LUIS - Nurse 1 - General Ulcer Assessment Start: 12/27/24 13:31 Freq: Status: Active Protocol: PEDRO LUIS Activity Type Activity Date Activity User E-sign Co-sign Detail Recorded Client Recorded Date Recorded By Document 12/27/24 13:32 KW [id number] 12/27/24 13:41 KW Document 12/30/24 10:01 KW [id number] 12/30/24 10:13 KW Document 01/03/25 14:02 ML [id number] 01/03/25 14:06 ML Document 01/06/25 12:32 RB [id number] 01/06/25 12:34 RB Document 01/10/25 14:21 RB [id number] 01/10/25 14:23 RB 12/27/24 12/30/24 01/03/25 13:32 10:01 14:02 WC - Today's Visit Information Type of service Initial Visit Nurse-only Follow-up Visit Visit (Physician/MANAGER OF ORGANIZATIONAL DEVELOPMENT ) Arrival Mode Ambulatory Ambulatory Ambulatory Transfer Assistance None Accompanied by friend friend Patient Identification Verified (Name & Yes Yes Yes ) Patient Requires Transmission-Based No Precautions Height and Weight Height 5 ft 1 in Weight 233 lb Weight in Pounds 233.0 lbs Weight Measurement Method Estimated by Patient Body Mass Index (BMI) 44.0 44.0 44.0 BMI Classification Obese Obese Obese Vital Signs Temperature (97.8 F-99.1 F) 97.3 F L 96.0 F L 97 F L Temperature Source Temporal Temporal Temporal Pulse Rate (60-100) 83 76 73 Pulse Location Monitor Monitor Monitor Respiratory Rate (12-18) 18 16 14 Respiratory rate source Observation Observation Observation Oxygen Delivery Method Room Air Room Air Blood Pressure (90/60-120/80) 132/95 H 186/72 H 164/71 H Blood Pressure Mean 107 110 102 Source Monitor Monitor Monitor Position Semi-Fowlers Semi-Fowlers Sitting Blood Pressure Location Left Arm Left Arm Right Forearm History Since Last Visit- (Skip if this is Patient's initial visit) Have you changed medications since your No No last visit? Any new allergies or adverse reactions No No Had a fall/change in ADL's that may No No increase risk of falls Signs or symptoms of abuse and/or No No neglect since last visit Have you been in the hospital since your No No last visit? Has dressing in place as prescribed Yes No Has compression in place as prescribed Yes N/A Has offloadiing in place as prescribed N/A N/A Experienced any changes in pain level or No No management Left Footwear Regular Shoe Regular Shoe Right Footwear Regular Shoe Regular Shoe Pain Scale: 0-10 Numeric Is Patient Pain Free? No Yes Yes BLE -Intensity 2 -Alleviating Factors/Interventions Medicate when due,Inactivity/ Resting Lower Extremity Assessment/ Foot Assessment/ Toe Nail Assessment Right -Posterior Tibial Doppler Monophasic -Dorsalis Pedis Doppler Monophasic -Extremity Color Red,Hemosiderin -Hair Growth on Legs No -Hair Growth on Toes No -Thick No -Discolored No -Deformed No -Improper Length & Hygeine No Left -Posterior Tibial Doppler Monophasic -Dorsalis Pedis Doppler Monophasic -Extremity Color Red,Hemosiderin -Hair Growth on Legs No -Hair Growth on Toes No -Temperature of Extremity Cool -Thick No -Discolored No -Deformed No -Improper Length & Hygeine No Communication Assessment Preferred language Hungarian Manager Wholesale Required No Able to Read Yes Able to Write Yes Communication Tools None Caregiver Communication Skills No Impairment Impairment Right Hearing Abillity Normal Left Hearing Abillity Normal Visual Assistive Devices Glasses Teaching Assessment Preferences Verbal,Written, Demonstration Barriers to Learning None Readiness To Learn Excellent Willingness to Engage in Self Management High Activies Readiness to Engage in Self Management High Activities Anxiety Level Calm Cooperation Cooperative Perception Coherent Interest in Health Problem Asks Questions Education Importance Acknowledges Need Does Patient Smoke tobacco or other Yes substances Smoking Status Never smoker Is Patient Diabetic Yes Functional Assessment Recent Decline in Ability to Perform Denies Any Declines Culture/Advent/Weigher And Crusher Cultural/Advent Needs that may affect No Treatment Plan Would you allow our hospital fiberglass bonding machine tender to No meet you for the purpose of spiritual/ emotional support? Weigher And Crusher to contact [facility] No 01/06/25 01/10/25 12:32 14:21 WC - Today's Visit Information Type of service Nurse-only Follow-up Visit Visit (Physician/MANAGER OF ORGANIZATIONAL DEVELOPMENT ) Arrival Mode Ambulatory, Ambulatory Walker Transfer Assistance Manual,None None Accompanied by Patient Identification Verified (Name & Yes Yes ) Patient Requires Transmission-Based No Precautions Height and Weight Height Weight Weight in Pounds Weight Measurement Method Body Mass Index (BMI) 44.0 44.0 BMI Classification Obese Obese Vital Signs Temperature (97.8 F-99.1 F) 97 F L 97 F L Temperature Source Temporal Temporal Pulse Rate (60-100) 76 78 Pulse Location Monitor Monitor Respiratory Rate (12-18) 18 18 Respiratory rate source Observation Observation Oxygen Delivery Method Blood Pressure (90/60-120/80) 164/70 H 182/63 H Blood Pressure Mean 101 102 Source Monitor Monitor Position Semi-Fowlers Semi-Fowlers Blood Pressure Location Left Arm Left Arm History Since Last Visit- (Skip if this is Patient's initial visit) Have you changed medications since your No No last visit? Any new allergies or adverse reactions No No Had a fall/change in ADL's that may No No increase risk of falls Signs or symptoms of abuse and/or No No neglect since last visit Have you been in the hospital since your No No last visit? Has dressing in place as prescribed Yes Yes Has compression in place as prescribed Yes Yes Has offloadiing in place as prescribed N/A N/A Experienced any changes in pain level or No No management Left Footwear Regular Shoe Regular Shoe Right Footwear Regular Shoe Regular Shoe Pain Scale: 0-10 Numeric Is Patient Pain Free? Yes Yes BLE -Intensity -Alleviating Factors/Interventions Lower Extremity Assessment/ Foot Assessment/ Toe Nail Assessment Right -Posterior Tibial Doppler -Dorsalis Pedis Doppler -Extremity Color -Hair Growth on Legs -Hair Growth on Toes -Thick -Discolored -Deformed -Improper Length & Hygeine Left -Posterior Tibial Doppler -Dorsalis Pedis Doppler -Extremity Color -Hair Growth on Legs -Hair Growth on Toes -Temperature of Extremity -Thick -Discolored -Deformed -Improper Length & Hygeine Communication Assessment Preferred public speaking instructor Required Able to Read Able to Write Communication Tools Caregiver Communication Skills Impairment Right Hearing Abillity Left Hearing Abillity Visual Assistive Devices Teaching Assessment Preferences Barriers to Learning Readiness To Learn Willingness to Engage in Self Management Activies Readiness to Engage in Self Management Activities Anxiety Level Cooperation Perception Interest in Health Problem Education Importance Does Patient Smoke tobacco or other substances Smoking Status Is Patient Diabetic Functional Assessment Recent Decline in Ability to Perform Culture/Advent/Weigher And Crusher Cultural/Advent Needs that may affect Treatment Plan Would you allow our hospital fiberglass bonding machine tender to meet you for the purpose of spiritual/ emotional support? Weigher And Crusher to contact [facility] WC - Nurse 1 - General Ulcer Measurement Start: 12/27/24 13:31 Freq: Status: Active Protocol: Activity Type Activity Date Activity User E-sign Co-sign Detail Recorded Client Recorded Date Recorded By Document 12/27/24 13:32 KW [id number] 12/27/24 13:41 KW Document 01/03/25 14:02 ML [id number] 01/03/25 14:06 ML Document 01/06/25 12:32 RB [id number] 01/06/25 12:34 RB Document 01/10/25 14:21 RB [id number] 01/10/25 14:23 RB 12/27/24 01/03/25 01/06/25 13:32 14:02 12:32 Wound Center Nurse 1 2 LLE cluster -Combined with other wound -Current Size (cm) - Length 0.1 0.1 -Current Size (cm) - Width 0.1 0.1 -Current Size (cm) - Depth 0 0.1 -Total Square Cm 0.01 0.01 -Date of Last Picture (Recall this 12/27/24 field) -Photo Taken -Tunneling -Undermining/Tunneling -Circular Undermining -Exudate Amt Small Small -Exudate Type Serosanguineous Serosanguineous -Wound Margin Indistinct, Non -Visible -Granulation Amt Large (67-100%) None Present (0 %) -Granulation Quality Red -Slough/Fibrin -Necrosis Amt None Present (0 %) -Necrotic Tissue Type -Structure Exposed -Texture (Leanne-wound Skin Appearance) Assessed Assessed -Moisture (Leanne-wound Skin Appearance) Assessed,Dry/ Dry/Scaly Scaly -Color (Leanne-wound Skin Appearance) Assessed, Erythema, Erythema Erythema, Hemosiderin Hemosiderin Staining Staining -Temperature (Leanne-wound Skin No Abnormality No Abnormality Appearance) (Pt Warm) (Pt Warm) -Tenderness on Palpation (Leanne-wound No No Skin Appearance) -Ulcer Cleansing Soap and Water Soap and Water -Foul Odor after Cleansing No No 1 RLE CLUSTER -Combined with other wound -Current Size (cm) - Length 0.1 0.1 -Current Size (cm) - Width 0.1 0.1 -Current Size (cm) - Depth 0 0.1 -Total Square Cm 0.01 0.01 -Date of Last Picture (Recall this 12/27/24 field) -Photo Taken -Tunneling -Undermining/Tunneling -Circular Undermining -Exudate Amt Small None Present -Exudate Type Serosanguineous Serosanguineous -Wound Margin Distinct, Outline Attached -Granulation Amt Large (67-100%) None Present (0 %) -Granulation Quality Red -Slough/Fibrin No -Necrosis Amt None Present (0 %) -Necrotic Tissue Type -Structure Exposed -Texture (Leanne-wound Skin Appearance) Assessed Assessed -Moisture (Leanne-wound Skin Appearance) Assessed Assessed -Color (Laenne-wound Skin Appearance) Assessed, Assessed Erythema Erythema -Temperature (Leanne-wound Skin No Abnormality No Abnormality Appearance) (Pt Warm) (Pt Warm) -Tenderness on Palpation (Leanne-wound No No Skin Appearance) -Ulcer Cleansing Soap and Water Soap and Water -Foul Odor after Cleansing No No Lower Limb Edema Present Yes Right Calf (cm) 42.5 39.5 41.5 Right Ankle (cm) 23.5 24.5 23 Left Calf (cm) 43 41 43.5 Left Ankle (cm) 23.5 24 24.5 01/10/25 14:21 Wound Center Nurse 1 2 LLE cluster -Combined with other wound No -Current Size (cm) - Length 0.1 -Current Size (cm) - Width 0.1 -Current Size (cm) - Depth 0.1 -Total Square Cm 0.01 -Date of Last Picture (Recall this field) -Photo Taken Yes -Tunneling No -Undermining/Tunneling No -Circular Undermining No -Exudate Amt -Exudate Type -Wound Margin -Granulation Amt Large (67-100%) -Granulation Quality [place] -Slough/Fibrin Yes -Necrosis Amt Small (1-33%) -Necrotic Tissue Type Adherent Slough -Structure Exposed N/A -Texture (Leanne-wound Skin Appearance) Assessed, Excoriation -Moisture (Leanne-wound Skin Appearance) Assessed -Color (Leanne-wound Skin Appearance) Assessed -Temperature (Leanne-wound Skin No Abnormality Appearance) (Pt Warm) -Tenderness on Palpation (Leanne-wound No Skin Appearance) -Ulcer Cleansing Wound Cleanser -Foul Odor after Cleansing No 1 RLE CLUSTER -Combined with other wound No -Current Size (cm) - Length 0.1 -Current Size (cm) - Width 0.1 -Current Size (cm) - Depth 0.1 -Total Square Cm 0.01 -Date of Last Picture (Recall this field) -Photo Taken Yes -Tunneling No -Undermining/Tunneling No -Circular Undermining No -Exudate Amt Large -Exudate Type Serosanguineous -Wound Margin Distinct, Outline Attached -Granulation Amt Large (67-100%) -Granulation Quality [place] -Slough/Fibrin Yes -Necrosis Amt Small (1-33%) -Necrotic Tissue Type Eschar -Structure Exposed N/A -Texture (Leanne-wound Skin Appearance) Assessed, Excoriation -Moisture (Leanne-wound Skin Appearance) Assessed -Color (Leanne-wound Skin Appearance) Assessed -Temperature (Leanne-wound Skin No Abnormality Appearance) (Pt Warm) -Tenderness on Palpation (Leanne-wound No Skin Appearance) -Ulcer Cleansing Wound Cleanser -Foul Odor after Cleansing No Lower Limb Edema Present Yes Right Calf (cm) 38.5 Right Ankle (cm) 22 Left Calf (cm) 42.5 Left Ankle (cm) 23.2 WC - Nurse 2 - General Ulcer CM Notes Start: 12/27/24 13:31 Freq: Status: Active Protocol: Activity Type Activity Date Activity User E-sign Co-sign Detail Recorded Client Recorded Date Recorded By Document 12/27/24 13:59 DS [id number] 12/27/24 14:04 DS Document 01/03/25 14:22 DS [id number] 01/03/25 14:32 DS Document 01/10/25 14:45 DS [id number] 01/10/25 14:59 DS 12/27/24 01/03/25 01/10/25 13:59 14:22 14:45 Wound Center Nurse 2 2 LLE cluster -Time 13:59 14:22 14:46 -Correct Patient Yes Yes Yes -Correct Side, Site, Position Yes Yes Yes -Procedure Performed No No No -Wound/Ulcer Outcome Not Healed Not Healed Not Healed 1 RLE CLUSTER -Time 13:59 14:22 14:46 -Correct Patient Yes Yes Yes -Correct Side, Site, Position Yes Yes -Procedure Performed No No No -Wound/Ulcer Outcome Not Healed Not Healed Not Healed Pain Scale: 0-10 Numeric Is Patient Pain Free? Yes Yes Yes WC - Nurse 3 - General Ulcer D/C NN Start: 12/27/24 13:31 Freq: Status: Active Protocol: Activity Type Activity Date Activity User E-sign Co-sign Detail Recorded Client Recorded Date Recorded By Document 12/27/24 14:35 KW [id number] 12/27/24 14:36 KW Document 12/30/24 10:13 KW [id number] 12/30/24 10:14 KW Document 01/03/25 14:46 RB [id number] 01/03/25 14:56 RB Document 01/06/25 12:32 RB [id number] 01/06/25 12:34 RB Document 01/10/25 15:39 RB [id number] 01/10/25 15:40 RB 12/27/24 12/30/24 01/03/25 14:35 10:13 14:46 Wound Care Center Nurse 3 2 LLE cluster -Primary Dressing Applied -Primary Dressing Covered/Secured with -Hydrogel 1 RLE CLUSTER -Primary Dressing Applied -Primary Dressing Covered/Secured with -Hydrogel BLE -Multi-Layered Wrap Application Unna Boot - Unna Boot - Unna Boot - Bilateral Bilateral Bilateral -Stockings -Unna- Bilat (Qty applied) 1 1 1 Treatment Response Pain Scale: 0-10 Numeric Is Patient Pain Free? Yes Yes Yes WC - Visit Discharge Discharge Condition Stable Stable Stable Ambulatory Status Ambulatory Ambulatory Ambulatory Transportation Private Auto Private Auto Private Auto Medication Reconcilliation completed & No No No provided to patient/care provider Clinical Summary of Care Provided Yes Yes Yes 01/06/25 01/10/25 12:32 15:39 Wound Care Center Nurse 3 2 LLE cluster -Primary Dressing Applied C Hydrogel -Primary Dressing Covered/Secured with Dry Gauze & Roll Gauze, Secured with Tape -Hydrogel 1 1 RLE CLUSTER -Primary Dressing Applied C Hydrogel -Primary Dressing Covered/Secured with Dry Gauze & Roll Gauze, Secured with Tape -Hydrogel 1 BLE -Multi-Layered Wrap Application Unna Boot - Bilateral -Stockings Yes: SHOWN PT APPLICATION CIRCAIDS BILAT -Unna- Bilat (Qty applied) 1 Treatment Response Procedure Procedure Tolerated Well Tolerated Well Pain Scale: 0-10 Numeric Is Patient Pain Free? Yes Yes WC - Visit Discharge Discharge Condition Stable Stable Ambulatory Status Ambulatory, Ambulatory, Walker Walker Transportation Private Auto Private Auto Medication Reconcilliation completed & No No provided to patient/care provider Clinical Summary of Care Provided Yes Yes Charges/Coding Visit Charges Office Visits / Consults: [id number] OV L3 Est 20min Assessment/Plan Assessment/Plan (1) Venous stasis dermatitis of both lower extremities: CODE(S): I87.2 - Venous insufficiency (chronic) (peripheral) (2) Edema of both lower extremities: CODE(S): R60.0 - Localized edema (3) Swelling of both lower extremities: CODE(S): M79.89 - Other specified soft tissue disorders (4) Schwartz phlebectatica paraplantaris: CODE(S): R09.89 - Other specified symptoms and signs involving the circulatory and respiratory systems (5) Lipodermatosclerosis of left lower extremity: CODE(S): M79.3 - Panniculitis, unspecified (6) Morbid obesity with BMI of 40.0-44.9, adult: CODE(S): E66.01 - Morbid (severe) obesity due to excess calories; Z68.41 - Body mass index [BMI] 40.0-44.9, adult (7) Obstructive sleep apnea: CODE(S): G47.33 - Obstructive sleep apnea (adult) (pediatric) (8) Diabetes mellitus type 2 with complications: CODE(S): E11.8 - Type 2 diabetes mellitus with unspecified complications (9) Hypothyroidism: CODE(S): E03.9 - Hypothyroidism, unspecified (10) Hypertension: CODE(S): I10 - Essential (primary) hypertension (11) History of total bilateral knee replacement (TKR): CODE(S): Z96.653 - Presence of artificial knee joint, bilateral (12) History of section: CODE(S): Z98.891 - History of uterine scar from previous surgery (13) Congestive heart failure: CODE(S): I50.9 - Heart failure, unspecified PLAN: Plan This is a morbidly obese 89-year-old female who presented with bilateral lower extremity venous stasis dermatitis, and a history of swelling and edema in her lower extremities. She denied a history of lower extremity thrombophlebitis, but has had several episodes of lower extremity cellulitis in the past. She has recently been treated by her primary care physician with an oral course of doxycycline. We have discussed the conservative measures appropriate to the management of her lower extremity swelling and edema. She has been encouraged to continue sleeping on a flat surface at night. Leg elevation has been encouraged during daytime hours. Leg elevation is to be to heart level, or higher, as much as possible. Prolonged idle sitting has been discouraged. Ambulation has been encouraged. Weight loss has also been recommended. The patient has now received CircAid Velcro compression garments, which are to be donned on a daily basis for compression. The patient and her friend have been instructed in the appropriate means of application. With regard to the dermatologic changes in the patient's lower extremities, we are to use hydrogel topically to the denuded areas of epidermis on a daily basis. Aquaphor will be used on the intact, though scaly and dermatitic, skin. Following daily ap plication, the legs will be wrapped with gauze, over with the patient's CircAid Velcro compression garments will be applied. The patient has expressed her concerns regarding her limited financial resources relative to weekly visits to our facility. We have discussed the goals and expectations relative to current management. In conformance with the patient's wishes, the patient is to follow- up in 2 weeks with a nurse visit to assess her progress. At that time, her clinical needs will be reassessed to determine management options thereafter. At the patient's request, I have called and spoken with the patient's daughter in [place], and have informed her daughter of her mother's status and treatment plan. The daughter's questions have been answered. Total time: 24 minutes
== END 2025-01-25 23:59 | disposition home or self-care (01) ==
LOC: WC 14:00
PROVIDERS: PCP Family Medicine; Referring Provider Family Medicine; Visit Provider Surgery
DX: I87.2 Venous insufficiency (chronic) (peripheral) (principal); I11.0 Hypertensive heart disease with heart failure; I50.9 Heart failure, unspecified; E66.01 Morbid (severe) obesity due to excess calories; Z68.41 Body mass index [BMI] 40.0-44.9, adult; E11.8 Type 2 diabetes mellitus with unspecified complications; E03.9 Hypothyroidism, unspecified; M79.89 Other specified soft tissue disorders; R60.0 Localized edema; R09.89 Other specified symptoms and signs involving the circulatory and respiratory systems; M79.3 Panniculitis, unspecified; G47.33 Obstructive sleep apnea (adult) (pediatric); Z79.84 Long term (current) use of oral hypoglycemic drugs; Z79.891 Long term (current) use of opiate analgesic; Z79.890 Hormone replacement therapy; Z79.899 Other long term (current) drug therapy
CPT/HCPCS: 29580; 99213; G0463

== ENCOUNTER 2025-02-16 13:00 | Outpatient (RCR) | payer MEDICARE, SELFPAY ==
[2025-01-26 00:06] VITALS: BP 182/63; PULSE 78; RESP 18; TEMP 36.1; BMI 44.0
[2025-01-30 10:51] VITALS: BP 189/50; PULSE 79; RESP 16; TEMP 36.1; BMI 44.0
[2025-02-07 13:19] VITALS: BP 170/74; PULSE 82; RESP 18; TEMP 36.2; BMI 44.0
--- NOTE | 2025-02-07 18:30 | PCM.WC.HP ---
History of Present Illness Date of Service: 02/07/25 Chief Complaint: Venous stasis dermatitis of the lower extremities bilaterally History of Wound: This is an 89-year-old obese female who presented with a history of swelling and edema in her lower extremities, as well as venous stasis dermatitis in the gaiter areas bilaterally. The left lower extremity was more severely affected. The patient possesses graduated compression stockings, but had not been wearing them. She is uncertain as to the degree of compression. She is obese, with a BMI of 44.0. Her activity is limited. She spends a great deal of each day sitting in idle fashion. She sleeps on a flat mattress at night. She has a long history of swelling and edema in her lower extremities. She denied a history of thrombophlebitis. She has had episodes of cellulitis in her lower extremities in the past, the most recent of which was treated with oral doxycycline. Her primary care physician placed her on Lasix. Treatment of the dermatitic changes in the lower extremities had recently been by means of ABD's and Kerlix, as well as topical Aquaphor. 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 Venous stasis dermatitis of both lower extremities Edema of both lower extremities Swelling of both lower extremities Home Medications ?Medication ?Instructions ?Recorded ?Last Taken ?Type amlodipine 5 mg tablet 5 mg PO DAILY ##30 09/08/13 Unknown Rx ferrous sulfate 325 mg (65 mg 325 mg PO DAILY@0800 ##30 09/08/13 Unknown Rx iron) tablet glimepiride 4 mg tablet 4 mg PO BREAKFAST ##30 09/08/13 Unknown Rx hydrocodone-acetaminophen 5-325mg 1 - 2 tab PO Q4H PRN PRN PAIN ##60 09/08/13 Unknown Rx 5mg-325mg losartan 100 mg tablet 100 mg PO DAILY ##30 09/08/13 Unknown Rx multivitamin,pu-flbr-etxhrdqv 27 1 tab PO DAILY@0800 ##30 09/08/13 Unknown Rx mg-0.4 mg tablet (Therems-M) potassium chloride 20 mEq 20 meq PO DAILY ##30 09/08/13 Unknown Rx tablet,extended release(part/cryst) (Klor-Con M) thyroid (pork) 60 mg tablet 90 mg (1.5 x 60 mg) PO DAILY@0600 09/08/13 Unknown Rx ([place] Thyroid) ##60 hydrochlorothiazide 25 mg tablet 25 mg PO DAILY #30 tabs 09/09/13 Unknown Rx hydralazine 25 mg tablet 25 mg PO TID 12/27/24 Unknown History levothyroxine 100 mcg tablet 100 mcg PO DAILY 12/27/24 Unknown History Allergy/AdvReac Type Severity Reaction Status Date / Time celecoxib (From Celebrex) Allergy Other Verified 12/27/24 13:44 ciprofloxacin (From Cipro) Allergy Itching Verified 12/27/24 13:44 ciprofloxacin HCl (From Allergy Itching Verified 12/27/24 13:44 Cipro) codeine Allergy Itching Verified 12/27/24 13:44 rofecoxib (From Vioxx) Allergy Other Verified 12/27/24 13:44 niacin AdvReac Itching Verified 12/27/24 13:44 Penicillins (PCN) AdvReac Hives Verified 12/27/24 13:44 Sulfa (Sulfonamide AdvReac Other Verified 12/27/24 13:44 Antibiotics) Family History no significant family his Surgical History History of total bilateral knee replacement (TKR) History of section Social History Smoking Status: Never smoker Vital Signs Vital Signs Vital Signs: 02/07/25 13:19 Temperature 97.2 F L Temperature Source Temporal Pulse Rate 82 Respiratory Rate 18 Blood Pressure 170/74 H Blood Pressure Mean 106 Blood Pressure Source Monitor Blood Pressure Position Semi-Fowlers Blood Pressure Location Left Arm Weight Weight: 233 lb Body Mass Index (BMI) 44.0 Physical Exam Const alert, oriented x3, no apparent distress, no limitations, healthy appearing and well nourished Constitutional Narrative: The patient is morbidly obese, with a BMI of 44.0. General Appearance: cooperative, comfortable, well kempt and well developed Orientation / Consciousness: awake, oriented to person, oriented to place and oriented to time Exam Limitations: no limitations HEENT normocephalic and head/scalp atraumatic Head and Scalp: normal to inspection, normocephalic and atraumatic Face and Sinus: normal facial exam Nose: external nose normal External Ear: external ears normal Eyes EOMs intact bilaterally General Eye: normal appearance of both eyes Neck full ROM Resp normal respiratory effort, normal air movement, no retractions and no use of accessory muscles Effort and Inspection: able to speak in complete sentences Extremity no calf tenderness General Extremity: Negative for clubbing or cyanosis Skin Wound Narrative: Venous stasis dermatitis persists in the lower extremities bilaterally, involving the gaiter areas. The dermatitis is eczematous and erythematous in nature. There has been improvement within the last week. There are no ana open ulcerations, although there are areas of denuded epithelium. The left lower extremity dermatitic changes are associated with lipodermatosclerosis and hyperpigmentation. Swelling and edema in the lower extremities are noted bilaterally, though improving. Schwartz phlebectatica is noted near the medial malleoli bilaterally. There appears to be an associated erythematous rash at the margins of the dermatitis changes, which may represent a mycotic condition, tinea corporis. Neuro oriented x3, CN's II-XII intact bilaterally, moves all extremities, no focal motor deficits and no sensory deficits noted Sensorium / Orientation: awake, alert, oriented to person, oriented to place and oriented to time Cranial Nerves: CN normal except as noted Speech: speech normal Psych Appearance: grossly normal and appropriate Attitude: calm Activity / Motor Behavior: appropriate eye contact Speech: normal speech Mood & Affect: euthymic mood Thought Process: normal thought process Thought Content: normal thought content Attention / Concentration: attention grossly intact Debridement Note Debridement Note No debridement was completed: No debridement was completed today Post-Debridement Measurements and Additional Note: Post-Debridement Measurements/Treatment - Nurse 1 - General Ulcer Assessment Start: 01/30/25 10:49 Freq: Status: Active Protocol: PEDRO LUIS Activity Type Activity Date Activity User E-sign Co-sign Detail Recorded Client Recorded Date Recorded By Document 01/30/25 10:51 KW [id number] 01/30/25 10:58 KW Document 02/07/25 13:19 RB [id number] 02/07/25 13:30 RB 01/30/25 02/07/25 10:51 13:19 - Today's Visit Information Type of service Nurse-only Follow-up Visit Visit (Physician/SCRUBBER SYSTEM ATTENDANT ) Arrival Mode Ambulatory Ambulatory Transfer Assistance None Accompanied by friend Patient Identification Verified (Name & Yes Yes ) Patient Requires Transmission-Based No Precautions Height and Weight Body Mass Index (BMI) 44.0 44.0 BMI Classification Obese Obese Vital Signs Temperature (97.8 F-99.1 F) 96.9 F L 97.2 F L Temperature Source Temporal Temporal Pulse Rate (60-100) 79 82 Pulse Location Monitor Monitor Respiratory Rate (12-18) 16 18 Respiratory rate source Observation Observation Oxygen Delivery Method Room Air Blood Pressure (90/60-120/80) 189/50 H 170/74 H Blood Pressure Mean 96 106 Source Monitor Monitor Position Semi-Fowlers Semi-Fowlers Blood Pressure Location Left Arm Left Arm History Since Last Visit- (Skip if this is Patient's initial visit) Have you changed medications since your No No last visit? Any new allergies or adverse reactions No No Had a fall/change in ADL's that may No No increase risk of falls Signs or symptoms of abuse and/or No No neglect since last visit Have you been in the hospital since your No No last visit? Has dressing in place as prescribed Yes Yes Has compression in place as prescribed Yes Yes Has offloadiing in place as prescribed N/A N/A Experienced any changes in pain level or No No management Left Footwear Regular Shoe Right Footwear Regular Shoe Pain Scale: 0-10 Numeric Is Patient Pain Free? Yes Yes - Nurse 1 - General Ulcer Measurement Start: 01/30/25 10:49 Freq: Status: Active Protocol: Activity Type Activity Date Activity User E-sign Co-sign Detail Recorded Client Recorded Date Recorded By Document 02/07/25 13:19 RB [id number] 02/07/25 13:30 RB 02/07/25 13:19 Wound Center Nurse 1 2 LLE cluster -Combined with other wound No -Current Size (cm) - Length 0.1 -Current Size (cm) - Width 0.1 -Current Size (cm) - Depth 0.1 -Total Square Cm 0.01 -Photo Taken Yes -Tunneling No -Undermining/Tunneling No -Circular Undermining No -Exudate Amt Medium -Exudate Type Serosanguineous -Wound Margin Distinct, Outline Attached -Granulation Amt Medium (34-66%) -Granulation Quality [place] -Slough/Fibrin Yes -Necrosis Amt Small (1-33%) -Necrotic Tissue Type Adherent Slough -Structure Exposed N/A -Texture (Leanne-wound Skin Appearance) Assessed -Moisture (Leanne-wound Skin Appearance) Assessed -Color (Leanne-wound Skin Appearance) Assessed -Temperature (Leanne-wound Skin No Abnormality Appearance) (Pt Warm) -Tenderness on Palpation (Leanne-wound No Skin Appearance) -Ulcer Cleansing Wound Cleanser -Foul Odor after Cleansing No 1 RLE CLUSTER -Current Size (cm) - Length 0.1 -Current Size (cm) - Width 0.1 -Current Size (cm) - Depth 0.1 -Total Square Cm 0.01 -Photo Taken Yes -Tunneling No -Undermining/Tunneling No -Circular Undermining No -Exudate Amt Medium -Exudate Type Serosanguineous -Wound Margin Distinct, Outline Attached -Granulation Amt Medium (34-66%) -Granulation Quality [place] -Slough/Fibrin Yes -Necrosis Amt Small (1-33%) -Necrotic Tissue Type Adherent Slough -Structure Exposed N/A -Texture (Leanne-wound Skin Appearance) Assessed -Moisture (Leanne-wound Skin Appearance) Assessed -Color (Leanne-wound Skin Appearance) Assessed -Temperature (Leanne-wound Skin No Abnormality Appearance) (Pt Warm) -Tenderness on Palpation (Leanne-wound No Skin Appearance) -Ulcer Cleansing Wound Cleanser -Foul Odor after Cleansing No Lower Limb Edema Present Yes Right Calf (cm) 41.2 Right Ankle (cm) 25 Left Calf (cm) 45 Left Ankle (cm) 25 WC - Nurse 2 - General Ulcer CM Notes Start: 01/30/25 10:49 Freq: Status: Active Protocol: Activity Type Activity Date Activity User E-sign Co-sign Detail Recorded Client Recorded Date Recorded By Document 02/07/25 13:41 KRISTAL [id number] 02/07/25 13:42 KRISTAL 02/07/25 13:41 Wound Center Nurse 2 2 LLE cluster -Correct Patient Yes -Correct Side, Site, Position No -Correct Procedure No -Procedure Performed No -Wound/Ulcer Outcome Healed- Epithelialized 1 RLE CLUSTER -Correct Patient Yes -Correct Side, Site, Position No -Correct Procedure No -Procedure Performed No -Post Debridement (cm) - Length 0.1 -Post Debridement (cm) - Width 0.1 -Post Debridement (cm) - Depth 0.1 -Total Square (Post) (cm) 0.01 -Area of Debridement (cm) - Length 0.1 -Area of Debridement (cm) - Width 0.1 -Total Square (Area) (cm) 0.01 -Wound/Ulcer Outcome Not Healed Pain Scale: 0-10 Numeric Is Patient Pain Free? Yes - Nurse 3 - General Ulcer D/C NN Start: 01/30/25 10:49 Freq: Status: Active Protocol: Activity Type Activity Date Activity User E-sign Co-sign Detail Recorded Client Recorded Date Recorded By Document 01/30/25 10:51 KW [id number] 01/30/25 10:58 KW Document 01/30/25 11:25 JF [id number] 01/30/25 11:26 JF Document 02/07/25 13:58 RB [id number] 02/07/25 14:02 RB 01/30/25 01/30/25 02/07/25 10:51 11:25 13:58 Pain Scale: 0-10 Numeric Is Patient Pain Free? Yes Yes Yes Wound Care Center Nurse 3 2 LLE cluster -Ulcer Cleansing Soap and Water -Primary Dressing Applied C Hydrogel -Other Dressing hydrogel -Primary Dressing Covered/Secured with Dry Gauze & Roll Gauze, Secured with Tape -Hydrogel 1 1 RLE CLUSTER -Ulcer Cleansing Soap and Water Rinsed/ Wound Cleanser Irrigated with Saline -Foul Odor after Cleansing No -Primary Dressing Applied C Hydrogel C Hydrogel, NonAdherent Contact Layer -Other Dressing hydrogel -Primary Dressing Covered/Secured with Dry Gauze & Dry Gauze & Dry Gauze & Roll Gauze, Roll Gauze, Roll Gauze, Secured with Secured with Secured with Tape Tape Tape -Hydrogel 1 1 BLE -Other pt own CIRCAIDS circaides bilat . Treatment Response Procedure Tolerated Well WC - Visit Discharge Discharge Condition Stable Stable Ambulatory Status Ambulatory,Cane Ambulatory Transportation Private Auto Private Auto Accompanied by FRIEND Medication Reconcilliation completed & No No provided to patient/care provider Clinical Summary of Care Provided Yes Yes Charges/Coding Visit Charges Office Visits / Consults: 32495 OV L3 Est 20min Assessment/Plan Assessment/Plan (1) Venous stasis dermatitis of both lower extremities: CODE(S): I87.2 - Venous insufficiency (chronic) (peripheral) (2) Edema of both lower extremities: CODE(S): R60.0 - Localized edema (3) Swelling of both lower extremities: CODE(S): M79.89 - Other specified soft tissue disorders (4) Schwartz phlebectatica paraplantaris: CODE(S): R09.89 - Other specified symptoms and signs involving the circulatory and respiratory systems (5) Lipodermatosclerosis of left lower extremity: CODE(S): M79.3 - Panniculitis, unspecified (6) Morbid obesity with BMI of 40.0-44.9, adult: CODE(S): E66.01 - Morbid (severe) obesity due to excess calories; Z68.41 - Body mass index [BMI] 40.0-44.9, adult (7) Obstructive sleep apnea: CODE(S): G47.33 - Obstructive sleep apnea (adult) (pediatric) (8) Diabetes mellitus type 2 with complications: CODE(S): E11.8 - Type 2 diabetes mellitus with unspecified complications (9) Hypothyroidism: CODE(S): E03.9 - Hypothyroidism, unspecified (10) Hypertension: CODE(S): I10 - Essential (primary) hypertension (11) History of total bilateral knee replacement (TKR): CODE(S): Z96.653 - Presence of artificial knee joint, bilateral (12) History of section: CODE(S): Z98.891 - History of uterine scar from previous surgery (13) Congestive heart failure: CODE(S): I50.9 - Heart failure, unspecified PLAN: Plan This is a morbidly obese 89-year-old female who presented with bilateral lower extremity venous stasis dermatitis, and a history of swelling and edema in her lower extremities. She denied a history of lower extremity thrombophlebitis, but has had several episodes of lower extremity cellulitis in the past. She had recently been treated by her primary care physician with an oral course of doxycycline. We have discussed the conservative measures appropriate to the management of her lower extremity swelling and edema. She has been encouraged to continue sleeping on a flat surface at night. Leg elevation has been encouraged during daytime hours. Leg elevation is to be to heart level, or higher, as much as possible. It appears as though the patient may be less compliant with leg elevation during daytime hours than had been recommended. However, she has now obtained a day bed, placed in her living room, which will enable her to elevate her lower extremities for longer periods each day. Prolonged idle sitting has been discouraged. Ambulation has been encouraged. Weight loss has also been recommended. The patient has received CircAid Velcro compression garments, which are to be donned on a daily basis for compression. The patient and her friend have been instructed in the appropriate means of application. With regard to the dermatologic changes in the patient's lower extremities, we are to continue the use of collagen hydrogel topically to the denuded areas of epidermis on a daily basis. Aquaphor will be used on the intact, though scaly and dermatitic, skin. There is suspicion that there may be an element of tinea corporis at the periphery of the dermatitic changes, and a prescription is to be submitted for an antifungal topical agent. Following daily application, the legs will be wrapped with gauze, over with the patient's CircAid Velcro compression garments will be applied. At the patient's request, I have called and spoken with the patient's daughter in [place] several weeks ago, and have informed her daughter of her mother's status and treatment plan. The daughter's questions have been answered. Total time: 26 minutes
--- NOTE | 2025-02-08 09:53 | WC ---
PHOTO 02/07/25 YULIANA
[2025-02-16 13:14] VITALS: BP 194/58; PULSE 79; RESP 18; TEMP 35.8; BMI 44.0
--- NOTE | 2025-02-17 13:31 | HP.PCM_ITS ---
History of Present Illness Date of Service: 02/16/25 Chief Complaint: Venous stasis dermatitis of the lower extremities bilaterally History of Wound: This is an 89-year-old obese female who presented with a history of swelling and edema in her lower extremities, as well as venous stasis dermatitis in the gaiter areas bilaterally. The left lower extremity was more severely affected. The patient possesses graduated compression stockings, but had not been wearing them. She is uncertain as to the degree of compression. She is obese, with a BMI of 44.0. Her activity is limited. She spends a great deal of each day sitting in idle fashion. She sleeps on a flat mattress at night. She has a long history of swelling and edema in her lower extremities. She denied a history of thrombophlebitis. She has had episodes of cellulitis in her lower extremities in the past, the most recent of which was treated with oral doxycycline. Her primary care physician placed her on Lasix. Treatment of the dermatitic changes in the lower extremities had recently been by means of ABD's and Kerlix, as well as topical Aquaphor. 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 Venous stasis dermatitis of both lower extremities Edema of both lower extremities Swelling of both lower extremities Home Medications ?Medication ?Instructions ?Recorded ?Last Taken ?Type amlodipine 5 mg tablet 5 mg PO DAILY ##30 09/08/13 Unknown Rx ferrous sulfate 325 mg (65 mg 325 mg PO DAILY@0800 ##3 0 09/08/13 Unknown Rx iron) tablet glimepiride 4 mg tablet 4 mg PO BREAKFAST ##30 09/08 Unknown Rx hydrocodone-acetaminophen 5-325mg 1 - 2 tab PO Q4H PRN PRN PAIN ##60 09/08/13 Unknown Rx 5mg-325mg losartan 100 mg tablet 100 mg PO DAILY ##30 3 Unknown Rx multivitamin,ce-zzdi-lujxsdyo 27 1 tab PO DAILY@0800 # #30 09/08/13 Unknown Rx mg-0.4 mg tablet (Therems-M) potassium chloride 20 mEq 20 meq PO DAILY ##30 3 Unknown Rx tablet,extended release(part/cryst) (Klor-Con M) thyroid (pork) 60 mg tablet 90 mg (1.5 x 60 mg) PO FRANCISCO LY@0600 09/08/13 Unknown Rx ([place] Thyroid) ##60 hydrochlorothiazide 25 mg tablet 25 mg PO DAILY #30 ta bs 09/09/13 Unknown Rx hydralazine 25 mg tablet 25 mg PO TID 12/27/24 Unknow n History levothyroxine 100 mcg tablet 100 mcg PO DAILY 12/27/24 Unknown History clotrimazole 1 % topical cream 1 applic topical BID Ti clark 02/07/25 Unknown Rx Corporis 2 weeks #45 grams Allergy/AdvReac Type Severity Reaction Status Date / Time celecoxib (From Celebrex) Allergy Other Verified 12/27/24 13:44 ciprofloxacin (From Cipro) Allergy Itching Verified 12/27/24 13:44 ciprofloxacin HCl (From Allergy Itching Verified 12/27/24 13:44 Cipro) codeine Allergy Itching Verified 12/27/24 13:44 rofecoxib (From Vioxx) Allergy Other Verified 12/27/24 13:44 niacin AdvReac Itching Verified 12/27/24 13:44 Penicillins (PCN) AdvReac Hives Verified 12/27/24 13:44 Sulfa (Sulfonamide AdvReac Other Verified 12/27/24 13:44 Antibiotics) Family History no significant family his Surgical History History of total bilateral knee replacement (TKR) History of section Social History Smoking Status: Never smoker Vital Signs Vital Signs Vital Signs: Weight Weight: 233 lb Body Mass Index (BMI) 44.0 Physical Exam Const alert, oriented x3, no apparent distress, no limitations, healthy appearing and well nourished Constitutional Narrative: The patient is morbidly obese, with a BMI of 44.0. General Appearance: cooperative, comfortable, well kempt and well developed Orientation / Consciousness: awake, oriented to person, oriented to place and oriented to time Exam Limitations: no limitations HEENT normocephalic and head/scalp atraumatic Head and Scalp: normal to inspection, normocephalic and atraumatic Face and Sinus: normal facial exam Nose: external nose normal External Ear: external ears normal Eyes EOMs intact bilaterally General Eye: normal appearance of both eyes Neck full ROM Resp normal respiratory effort, normal air movement, no retractions and no use of accessory muscles Effort and Inspection: able to speak in complete sentences Extremity no calf tenderness General Extremity: Negative for clubbing or cyanosis Skin Wound Narrative: Venous stasis dermatitis persists in the lower extremities bilaterally, involving the gaiter areas. The dermatitis is eczematous and erythematous in nature. There has been improvement within the last week. There are no ana open ulcerations. The areas of denuded epithelium have resolved. The left lower extremity dermatitic changes are associated with lipodermatosclerosis and hyperpigmentation. Swelling and edema in the lower extremities are noted bilaterally, though improving. Schwartz phlebectatica is noted near the medial malleoli bilaterally. The dermatitic changes appear to be associated with an erythematous rash, which is suspicious for tenia corporis, rather than strictly inflammatory. Neuro oriented x3, CN's II-XII intact bilaterally, moves all extremities, no focal motor deficits and no sensory deficits noted Sensorium / Orientation: awake, alert, oriented to person, oriented to place and oriented to time Cranial Nerves: CN normal except as noted Speech: speech normal Psych Appearance: grossly normal and appropriate Attitude: calm Activity / Motor Behavior: appropriate eye contact Speech: normal speech Mood & Affect: euthymic mood Thought Process: normal thought process Thought Content: normal thought content Attention / Concentration: attention grossly intact Debridement Note Debridement Note No debridement was completed: No debridement was completed today (There are no open wounds or ulcerations.) Post-Debridement Measurements and Additional Note: Post-Debridement Measurements/Treatment - Nurse 1 - General Ulcer Assessment Start: 01/30/25 10:49 Freq: Status: Active Protocol: PEDRO LUIS Activity Type Activity Date Activity User E-sign Co-sign Detail Recorded Client Recorded Date Recorded By Document 01/30/25 10:51 KW [id number] 01/30/25 10:58 KW Document 02/07/25 13:19 RB [id number] 02/07/25 13:30 RB Document 02/16/25 13:14 KW [id number] 02/16/25 13:21 KW 01/30/25 02/07/25 02/16/25 10:51 13:19 13:14 WC - Today's Visit Information Type of service Nurse-only Follow-up Visit Follow-up Visit Visit (Physician/TANK SYSTEMS MAINTAINER (Physician/TANK SYSTEMS MAINTAINER ) ) Arrival Mode Ambulatory Ambulatory Ambulatory Transfer Assistance None Accompanied by friend friend Patient Identification Verified (Name & Yes Yes Yes ) Patient Requires Transmission-Based No Precautions Height and Weight Body Mass Index (BMI) 44.0 44.0 44.0 BMI Classification Obese Obese Obese Vital Signs Temperature (97.8 F-99.1 F) 96.9 F L 97.2 F L 96.5 F L Temperature Source Temporal Temporal Temporal Pulse Rate (60-100) 79 82 79 Pulse Location Monitor Monitor Monitor Respiratory Rate (12-18) 16 18 18 Respiratory rate source Observation Observation Observation Oxygen Delivery Method Room Air Room Air Blood Pressure (90/60-120/80) 189/50 H 170/74 H 194/58 H Blood Pressure Mean 96 106 103 Source Monitor Monitor Monitor Position Semi-Fowlers Semi-Fowlers Sitting Blood Pressure Location Left Arm Left Arm Right Forearm History Since Last Visit- (Skip if this is Patient's initial visit) Have you changed medications since your No No No last visit? Any new allergies or adverse reactions No No No Had a fall/change in ADL's that may No No No increase risk of falls Signs or symptoms of abuse and/or No No No neglect since last visit Have you been in the hospital since your No No No last visit? Has dressing in place as prescribed Yes Yes Yes Has compression in place as prescribed Yes Yes Yes Has offloadiing in place as prescribed N/A N/A N/A Experienced any changes in pain level or No No No management Left Footwear Regular Shoe Regular Shoe Right Footwear Regular Shoe Regular Shoe Pain Scale: 0-10 Numeric Is Patient Pain Free? Yes Yes Yes - Nurse 1 - General Ulcer Measurement Start: 01/30/25 10:49 Freq: Status: Active Protocol: Activity Type Activity Date Activity User E-sign Co-sign Detail Recorded Client Recorded Date Recorded By Document 02/07/25 13:19 RB [id number] 02/07/25 13:30 RB Document 02/16/25 13:14 KW [id number] 02/16/25 13:21 KW 02/07/25 02/16/25 13:19 13:14 Wound Center Nurse 1 2 LLE cluster -Combined with other wound No -Current Size (cm) - Length 0.1 -Current Size (cm) - Width 0.1 -Current Size (cm) - Depth 0.1 -Total Square Cm 0.01 -Photo Taken Yes -Tunneling No -Undermining/Tunneling No -Circular Undermining No -Exudate Amt Medium -Exudate Type Serosanguineous -Wound Margin Distinct, Outline Attached -Granulation Amt Medium (34-66%) -Granulation Quality [place] -Slough/Fibrin Yes -Necrosis Amt Small (1-33%) -Necrotic Tissue Type Adherent Slough -Structure Exposed N/A -Texture (Leanne-wound Skin Appearance) Assessed -Moisture (Leanne-wound Skin Appearance) Assessed -Color (Leanne-wound Skin Appearance) Assessed -Temperature (Leanne-wound Skin No Abnormality Appearance) (Pt Warm) -Tenderness on Palpation (Leanne-wound No Skin Appearance) -Ulcer Cleansing Wound Cleanser -Foul Odor after Cleansing No 1 RLE CLUSTER -Current Size (cm) - Length 0.1 0.1 -Current Size (cm) - Width 0.1 0.1 -Current Size (cm) - Depth 0.1 0 -Total Square Cm 0.01 0.01 -Photo Taken Yes -Tunneling No -Undermining/Tunneling No -Circular Undermining No -Exudate Amt Medium -Exudate Type Serosanguineous -Wound Margin Distinct, Outline Attached -Granulation Amt Medium (34-66%) -Granulation Quality [place] -Slough/Fibrin Yes -Necrosis Amt Small (1-33%) -Necrotic Tissue Type Adherent Slough -Structure Exposed N/A -Texture (Leanne-wound Skin Appearance) Assessed Assessed -Moisture (Leanne-wound Skin Appearance) Assessed Assessed,Dry/ Scaly -Color (Leanne-wound Skin Appearance) Assessed Assessed, Erythema -Temperature (Leanne-wound Skin No Abnormality Appearance) (Pt Warm) -Tenderness on Palpation (Leanne-wound No Skin Appearance) -Ulcer Cleansing Wound Cleanser -Foul Odor after Cleansing No Lower Limb Edema Present Yes Right Calf (cm) 41.2 36.5 Right Ankle (cm) 25 24.5 Left Calf (cm) 45 36.5 Left Ankle (cm) 25 25.5 WC - Nurse 2 - General Ulcer CM Notes Start: 01/30/25 10:49 Freq: Status: Active Protocol: Activity Type Activity Date Activity User E-sign Co-sign Detail Recorded Client Recorded Date Recorded By Document 02/07/25 13:41 JF [id number] 02/07/25 13:42 JF Document 02/16/25 13:36 DS [id number] 02/16/25 13:36 DS 02/07/25 02/16/25 13:41 13:36 Wound Center Nurse 2 2 LLE cluster -Correct Patient Yes -Correct Side, Site, Position No -Correct Procedure No -Procedure Performed No -Wound/Ulcer Outcome Healed- Epithelialized 1 RLE CLUSTER -Time 13:36 -Correct Patient Yes Yes -Correct Side, Site, Position No Yes -Correct Procedure No -Procedure Performed No No -Post Debridement (cm) - Length 0.1 -Post Debridement (cm) - Width 0.1 -Post Debridement (cm) - Depth 0.1 -Total Square (Post) (cm) 0.01 -Area of Debridement (cm) - Length 0.1 -Area of Debridement (cm) - Width 0.1 -Total Square (Area) (cm) 0.01 -Wound/Ulcer Outcome Not Healed Not Healed Pain Scale: 0-10 Numeric Is Patient Pain Free? Yes Yes - Nurse 3 - General Ulcer D/C NN Start: 01/30/25 10:49 Freq: Status: Active Protocol: Activity Type Activity Date Activity User E-sign Co-sign Detail Recorded Client Recorded Date Recorded By Document 01/30/25 10:51 KW [id number] 01/30/25 10:58 KW Document 01/30/25 11:25 JF [id number] 01/30/25 11:26 JF Document 02/07/25 13:58 RB [id number] 02/07/25 14:02 RB Document 02/16/25 13:48 RB [id number] 02/16/25 13:52 RB 01/30/25 01/30/25 02/07/25 10:51 11:25 13:58 Pain Scale: 0-10 Numeric Is Patient Pain Free? Yes Yes Yes Wound Care Center Nurse 3 2 LLE cluster -Ulcer Cleansing Soap and Water -Primary Dressing Applied C Hydrogel -Other Dressing hydrogel -Primary Dressing Covered/Secured with Dry Gauze & Roll Gauze, Secured with Tape -Hydrogel 1 1 RLE CLUSTER -Ulcer Cleansing Soap and Water Rinsed/ Wound Cleanser Irrigated with Saline -Foul Odor after Cleansing No -Primary Dressing Applied C Hydrogel C Hydrogel, NonAdherent Contact Layer -Other Dressing hydrogel -Primary Dressing Covered/Secured with Dry Gauze & Dry Gauze & Dry Gauze & Roll Gauze, Roll Gauze, Roll Gauze, Secured with Secured with Secured with Tape Tape Tape -Other Covering -Hydrogel 1 1 BLE -Other pt own CIRCAIDS circaides bilat . Treatment Response Procedure Tolerated Well WC - Visit Discharge Discharge Condition Stable Stable Ambulatory Status Ambulatory,Cane Ambulatory Transportation Private Auto Private Auto Accompanied by FRIEND Medication Reconcilliation completed & No No provided to patient/care provider Clinical Summary of Care Provided Yes Yes 02/16/25 13:48 Pain Scale: 0-10 Numeric Is Patient Pain Free? Yes Wound Care Center Nurse 3 2 LLE cluster -Ulcer Cleansing -Primary Dressing Applied -Other Dressing -Primary Dressing Covered/Secured with -Hydrogel 1 RLE CLUSTER -Ulcer Cleansing -Foul Odor after Cleansing -Primary Dressing Applied -Other Dressing -Primary Dressing Covered/Secured with Dry Gauze & Roll Gauze, Secured with Tape -Other Covering circaids -Hydrogel BLE -Other circaids Treatment Response Procedure Tolerated Well WC - Visit Discharge Discharge Condition Stable Ambulatory Status Transportation Private Auto Accompanied by Medication Reconcilliation completed & No provided to patient/care provider Clinical Summary of Care Provided Yes Charges/Coding Visit Charges Office Visits / Consults: [id number] OV L3 Est 20min Assessment/Plan Assessment/Plan (1) Venous stasis dermatitis of both lower extremities: CODE(S): I87.2 - Venous insufficiency (chronic) (peripheral) (2) Edema of both lower extremities: CODE(S): R60.0 - Localized edema (3) Swelling of both lower extremities: CODE(S): M79.89 - Other specified soft tissue disorders (4) Schwartz phlebectatica paraplantaris: CODE(S): R09.89 - Other specified symptoms and signs involving the circulatory and respiratory systems (5) Lipodermatosclerosis of left lower extremity: CODE(S): M79.3 - Panniculitis, unspecified (6) Morbid obesity with BMI of 40.0-44.9, adult: CODE(S): E66.01 - Morbid (severe) obesity due to excess calories; Z68.41 - Body mass index [BMI] 40.0-44.9, adult (7) Obstructive sleep apnea: CODE(S): G47.33 - Obstructive sleep apnea (adult) (pediatric) (8) Diabetes mellitus type 2 with complications: CODE(S): E11.8 - Type 2 diabetes mellitus with unspecified complications (9) Hypothyroidism: CODE(S): E03.9 - Hypothyroidism, unspecified (10) Hypertension: CODE(S): I10 - Essential (primary) hypertension (11) History of total bilateral knee replacement (TKR): CODE(S): Z96.653 - Presence of artificial knee joint, bilateral (12) History of section: CODE(S): Z98.891 - History of uterine scar from previous surgery (13) Congestive heart failure: CODE(S): I50.9 - Heart failure, unspecified PLAN: Plan This is a morbidly obese 89-year-old female who presented with bilateral lower extremity venous stasis dermatitis, and a history of swelling and edema in her lower extremities. She denied a history of lower extremity thrombophlebitis, but has had several episodes of lower extremity cellulitis in the past. She had recently been treated by her primary care physician with an oral course of doxycycline. We have discussed the conservative measures appropriate to the management of her lower extremity swelling and edema. She has been encouraged to continue sleeping on a flat surface at night. Leg elevation has been encouraged during daytime hours. Leg elevation is to be to heart level, or higher, as much as possible. It appears as though the patient may be less compliant with leg elevation during daytime hours than had been recommended. However, she has now obtained a day bed, placed in her living room, which will enable her to elevate her lower extremities for longer periods each day. Prolonged idle sitting has been discouraged. Ambulation has been encouraged. Weight loss has also been recommended. The patient has received CircAid Velcro compression garments, which are to be donned on a daily basis for compression. The patient and her friend have been instructed in the appropriate means of application. With regard to the dermatologic changes in the patient's lower extremities, the denuded areas of epithelium have now resolved. However, the eczematous, venous stasis dermatitis persists in the gaiter areas bilaterally. There is also a pronounced erythema, which is suspected to be mycotic in nature, representing tenia corporis. Therefore, the patient is to continue using clotrimazole topically to the erythematous areas, applied topically twice daily. Following application, the legs will be wrapped with gauze, over with the patient's CircAid Velcro compression garments will be applied. The patient is to follow-up in 2 weeks for reevaluation. Total time: 24 minutes
== END 2025-02-25 23:59 | disposition home or self-care (01) ==
LOC: WC 13:00
PROVIDERS: PCP Family Medicine; Referring Provider Family Medicine; Visit Provider Surgery Plastic and Reconstructive Surgery
DX: I87.2 Venous insufficiency (chronic) (peripheral) (principal); I11.0 Hypertensive heart disease with heart failure; I50.9 Heart failure, unspecified; Z68.41 Body mass index [BMI] 40.0-44.9, adult; E66.01 Morbid (severe) obesity due to excess calories; E11.8 Type 2 diabetes mellitus with unspecified complications; R60.0 Localized edema; M79.89 Other specified soft tissue disorders; E03.9 Hypothyroidism, unspecified; R09.89 Other specified symptoms and signs involving the circulatory and respiratory systems; M79.3 Panniculitis, unspecified; G47.33 Obstructive sleep apnea (adult) (pediatric); Z79.84 Long term (current) use of oral hypoglycemic drugs; Z79.890 Hormone replacement therapy; Z79.899 Other long term (current) drug therapy; Z96.653 Presence of artificial knee joint, bilateral
CPT/HCPCS: 99211; 99213; G0463

== ENCOUNTER 2025-02-28 13:00 | Outpatient (RCR) | payer MEDICARE, SELFPAY ==
[2025-02-26 00:06] VITALS: BP 194/58; PULSE 79; RESP 18; TEMP 35.8; BMI 44.0
[2025-02-28 13:05] VITALS: BP 157/72; PULSE 78; RESP 16; TEMP 36.3; BMI 44.0
--- NOTE | 2025-03-01 09:55 | PCM.WC.HP ---
History of Present Illness Date of Service: 02/28/25 Chief Complaint: Venous stasis dermatitis of the lower extremities bilaterally History of Wound: This is an 89-year-old obese female who presented with a history of swelling and edema in her lower extremities, as well as venous stasis dermatitis in the gaiter areas bilaterally. The patient possesses graduated compression stockings, but had not been wearing them. She is uncertain as to the degree of compression. She is obese, with a BMI of 44.0. Her activity is limited. She spends a great deal of each day sitting in idle fashion. She sleeps on a flat mattress at night. She has a long history of swelling and edema in her lower extremities. She denied a history of thrombophlebitis. She has had episodes of cellulitis in her lower extremities in the past, the most recent of which was treated with oral doxycycline. Her primary care physician placed her on Lasix. Treatment of the dermatitic changes and exudative drainage in the lower extremities had recently been by means of ABD's and Kerlix, as well as topical Aquaphor. [facility] Medical History Congestive heart failure Obstructive sleep apnea Diabetes mellitus type 2 with complications Hypothyroidism Hypertension Morbid obesity with BMI of 40.0-44.9, adult Lipodermatosclerosis of left lower extremity Schwartz phlebectatica paraplantaris Venous stasis dermatitis of both lower extremities Edema of both lower extremities Swelling of both lower extremities Home Medications Medication Instructions Recorded Last Taken Type amlodipine 5 mg tablet 5 mg PO DAILY ##30 09/08/13 Unknown Rx ferrous sulfate 325 mg (65 mg 325 mg PO DAILY@0800 ##30 09/08/13 Unknown Rx iron) tablet glimepiride 4 mg tablet 4 mg PO BREAKFAST ##30 09/08/13 Unknown Rx hydrocodone-acetaminophen 5-325mg 1 - 2 tab PO Q4H PRN PRN PAIN ##60 09/08/13 Unknown Rx 5mg-325mg losartan 100 mg tablet 100 mg PO DAILY ##30 09/08/13 Unknown Rx multivitamin,tw-sfre-ygmnfeaw 27 1 tab PO DAILY@0800 ##30 09/08/13 Unknown Rx mg-0.4 mg tablet (Therems-M) potassium chloride 20 mEq 20 meq PO DAILY ##30 09/08/13 Unknown Rx tablet,extended release(part/cryst) (Klor-Con M) thyroid (pork) 60 mg tablet 90 mg (1.5 x 60 mg) PO DAILY@0600 09/08/13 Unknown Rx ([place] Thyroid) ##60 hydrochlorothiazide 25 mg tablet 25 mg PO DAILY #30 tabs 09/09/13 Unknown Rx hydralazine 25 mg tablet 25 mg PO TID 12/27/24 Unknown History levothyroxine 100 mcg tablet 100 mcg PO DAILY 12/27/24 Unknown History clotrimazole 1 % topical cream 1 applic topical BID Tinea 02/07/25 Unknown Rx Corporis 2 weeks #45 grams Allergy/AdvReac Type Severity Reaction Status Date / Time celecoxib (From Celebrex) Allergy Other Verified 12/27/24 13:44 ciprofloxacin (From Cipro) Allergy Itching Verified 12/27/24 13:44 ciprofloxacin HCl (From Allergy Itching Verified 12/27/24 13:44 Cipro) codeine Allergy Itching Verified 12/27/24 13:44 rofecoxib (From Vioxx) Allergy Other Verified 12/27/24 13:44 niacin AdvReac Itching Verified 12/27/24 13:44 Penicillins (PCN) AdvReac Hives Verified 12/27/24 13:44 Sulfa (Sulfonamide AdvReac Other Verified 12/27/24 13:44 Antibiotics) Family History no significant family his Surgical History History of total bilateral knee replacement (TKR) History of section Social History Smoking Status: Never smoker Vital Signs Vital Signs Vital Signs: 02/28/25 13:05 Temperature 97.3 F L Temperature Source Temporal Pulse Rate 78 Respiratory Rate 16 Blood Pressure 157/72 H Blood Pressure Mean 100 Blood Pressure Source Monitor Blood Pressure Position Sitting Oxygen Delivery Method Room Air Weight Weight: 233 lb Body Mass Index (BMI) 44.0 Physical Exam Const alert, oriented x3, no apparent distress, no limitations, healthy appearing and well nourished Constitutional Narrative: The patient is morbidly obese, with a BMI of 44.0. General Appearance: cooperative, comfortable, well kempt and well developed Orientation / Consciousness: awake, oriented to person, oriented to place and oriented to time Exam Limitations: no limitations HEENT normocephalic and head/scalp atraumatic Head and Scalp: normal to inspection, normocephalic and atraumatic Face and Sinus: normal facial exam Nose: external nose normal External Ear: external ears normal Eyes EOMs intact bilaterally General Eye: normal appearance of both eyes Neck full ROM Resp normal respiratory effort, normal air movement, no retractions and no use of accessory muscles Effort and Inspection: able to speak in complete sentences Extremity no calf tenderness General Extremity: Negative for clubbing or cyanosis Skin Wound Narrative: Venous stasis dermatitis persists in the lower extremities bilaterally, involving the gaiter areas. The dermatitis is scaly, eczematous, and erythematous in nature. The erythema is intense, arousing suspicion of a dermatomycosis. There are no ana open ulcerations. The areas of denuded epithelium have resolved. However, a small area on the right medial calf appears to be exudative of clear, serous fluid. The left lower extremity dermatitic changes are associated with lipodermatosclerosis and hyperpigmentation. Swelling and edema in the lower extremities are noted bilaterally, though improving. Schwartz phlebectatica is noted near the medial malleoli bilaterally. The intense erythematous, dermatitic changes are suspicious for tenia corporis, rather than strictly inflammatory. Neuro oriented x3, CN's II-XII intact bilaterally, moves all extremities, no focal motor deficits and no sensory deficits noted Sensorium / Orientation: awake, alert, oriented to person, oriented to place and oriented to time Cranial Nerves: CN normal except as noted Speech: speech normal Psych Appearance: grossly normal and appropriate Attitude: calm Activity / Motor Behavior: appropriate eye contact Speech: normal speech Mood & Affect: euthymic mood Thought Process: normal thought process Thought Content: normal thought content Attention / Concentration: attention grossly intact Debridement Note Debridement Note No debridement was completed: No debridement was completed today (There are no ana open wounds or ulcerations.) Post-Debridement Measurements and Additional Note: Post-Debridement Measurements/Treatment JOSE LUIS - Nurse 1 - General Ulcer Assessment Start: 02/28/25 13:04 Freq: Status: Active Protocol: PEDRO LUIS Activity Type Activity Date Activity User E-sign Co-sign Detail Recorded Client Recorded Date Recorded By Document 02/28/25 13:05 [facility] [id number] 02/28/25 13:19 [facility] 02/28/25 13:05 WC - Today's Visit Information Type of service Follow-up Visit (Physician/[employer] ) Arrival Mode Ambulatory Transfer Assistance None Accompanied by friend from [facility] Patient Identification Verified (Name & Yes ) Height and Weight Body Mass Index (BMI) 44.0 BMI Classification Obese Vital Signs Temperature (97.8 F-99.1 F) 97.3 F L Temperature Source Temporal Pulse Rate (60-100) 78 Pulse Location Monitor Respiratory Rate (12-18) 16 Respiratory rate source Observation Oxygen Delivery Method Room Air Blood Pressure (90/60-120/80) 157/72 H Blood Pressure Mean 100 Source Monitor Position Sitting History Since Last Visit- (Skip if this is Patient's initial visit) Have you changed medications since your No last visit? Any new allergies or adverse reactions No Had a fall/change in ADL's that may No increase risk of falls Signs or symptoms of abuse and/or No neglect since last visit Have you been in the hospital since your No last visit? Has dressing in place as prescribed Yes Has compression in place as prescribed Yes Has offloadiing in place as prescribed N/A Experienced any changes in pain level or No management Left Footwear Regular Shoe Right Footwear Regular Shoe Pain Scale: 0-10 Numeric Is Patient Pain Free? Yes Teaching: Wound Center Control Swelling with Leg Elevation -Person Taught Patient -Teaching Method Discussion -Response to teaching Verbalize Understanding - Nurse 1 - General Ulcer Measurement Start: 02/28/25 13:04 Freq: Status: Active Protocol: Activity Type Activity Date Activity User E-sign Co-sign Detail Recorded Client Recorded Date Recorded By Document 02/28/25 13:05 [facility] [id number] 02/28/25 13:19 [facility] 02/28/25 13:05 Wound Center Nurse 1 Lower Limb Edema Present Yes Right Calf (cm) 41.8 Right Ankle (cm) 22.9 Left Calf (cm) 42.4 Left Ankle (cm) 23.4 - Nurse 2 - General Ulcer CM Notes Start: 02/28/25 13:04 Freq: Status: Active Protocol: Activity Type Activity Date Activity User E-sign Co-sign Detail Recorded Client Recorded Date Recorded By Document 02/28/25 13:34 DS [id number] 02/28/25 13:35 DS 02/28/25 13:34 Wound Center Nurse 2 #3 B/L LE -Time 13:34 -Correct Patient Yes -Correct Side, Site, Position Yes -Procedure Performed No -Wound/Ulcer Outcome Not Healed Pain Scale: 0-10 Numeric Is Patient Pain Free? Yes WC - Nurse 3 - General Ulcer D/C NN Start: 02/28/25 13:04 Freq: Status: Active Protocol: Activity Type Activity Date Activity User E-sign Co-sign Detail Recorded Client Recorded Date Recorded By Document 02/28/25 13:50 KW [id number] 02/28/25 13:51 KW 02/28/25 13:50 Wound Care Center Nurse 3 #3 B/L LE -Other Dressing antifungal cream to reddened areas and aquafor -Primary Dressing Covered/Secured with Dry Gauze & Roll Gauze, Secured with Tape BLE -Other pt circaides Pain Scale: 0-10 Numeric Is Patient Pain Free? Yes WC - Visit Discharge Discharge Condition Stable Ambulatory Status Ambulatory Transportation Private Auto Accompanied by friend Medication Reconcilliation completed & No provided to patient/care provider Clinical Summary of Care Provided Yes Notes: reffered to derm Charges/Coding Visit Charges Office Visits / Consults: 89920 OV L3 Est 20min Assessment/Plan Assessment/Plan (1) Venous stasis dermatitis of both lower extremities: CODE(S): I87.2 - Venous insufficiency (chronic) (peripheral) (2) Edema of both lower extremities: CODE(S): R60.0 - Localized edema (3) Swelling of both lower extremities: CODE(S): M79.89 - Other specified soft tissue disorders (4) Schwartz phlebectatica paraplantaris: CODE(S): R09.89 - Other specified symptoms and signs involving the circulatory and respiratory systems (5) Lipodermatosclerosis of left lower extremity: CODE(S): M79.3 - Panniculitis, unspecified (6) Morbid obesity with BMI of 40.0-44.9, adult: CODE(S): E66.01 - Morbid (severe) obesity due to excess calories; Z68.41 - Body mass index [BMI] 40.0-44.9, adult (7) Obstructive sleep apnea: CODE(S): G47.33 - Obstructive sleep apnea (adult) (pediatric) (8) Diabetes mellitus type 2 with complications: CODE(S): E11.8 - Type 2 diabetes mellitus with unspecified complications (9) Hypothyroidism: CODE(S): E03.9 - Hypothyroidism, unspecified (10) Hypertension: CODE(S): I10 - Essential (primary) hypertension (11) History of total bilateral knee replacement (TKR): CODE(S): Z96.653 - Presence of artificial knee joint, bilateral (12) History of section: CODE(S): Z98.891 - History of uterine scar from previous surgery (13) Congestive heart failure: CODE(S): I50.9 - Heart failure, unspecified PLAN: Plan This is a morbidly obese 89-year-old female who presented with bilateral lower extremity venous stasis dermatitis, and a history of swelling and edema in her lower extremities. She denied a history of lower extremity thrombophlebitis, but has had several episodes of lower extremity cellulitis in the past. She had recently been treated by her primary care physician with an oral course of doxycycline. We have discussed the conservative measures appropriate to the management of her lower extremity swelling and edema. She has been encouraged to continue sleeping on a flat surface at night. Leg elevation has been encouraged during daytime hours. Leg elevation is to be to heart level, or higher, as much as possible. It appears as though the patient may be less compliant with leg elevation during daytime hours than had been recommended. However, she has now obtained a "day bed", placed in her living room, which will enable her to elevate her lower extremities for longer periods each day. Prolonged idle sitting has been discouraged. Ambulation has been encouraged. Weight loss has also been recommended. The patient has received CircAid Velcro compression garments, which are to be donned on a daily basis for compression. The patient and her caregiver have been instructed in the appropriate means of application. With regard to the dermatologic changes in the patient's lower extremities, the denuded areas of epithelium have now resolved. However, the eczematous, venous stasis dermatitis persists in the gaiter areas bilaterally. There is also a pronounced erythema, which is suspected to be mycotic in nature, representing tenia corporis. Therefore, the patient is to continue using clotrimazole topically to the erythematous areas, applied topically twice daily. Absorptive ABD pads have been recommended for absorption of the exudative drainage from the right medial calf. These are to be changed as needed. Following application of clotrimazole,, the legs will be wrapped with gauze, over with the patient's CircAid Velcro compression garments will be applied. The patient is to follow-up in 2 weeks for reevaluation. Because the intense erythema has failed to significantly improve, we are to refer the patient for consultation with a local gang supervisor, [facility], for assessment and recommendations. The patient has formerly been a patient with [facility], having specifically mention GERONIMO Sanchez, as her preference for referral. Attempt will be made to expedite patient's appointment with [facility], and her recent medical records will be forwarded as well. Total time: 26 minutes
== END 2025-03-27 23:59 | disposition home or self-care (01) ==
LOC: WC 13:00
PROVIDERS: PCP Family Medicine; Referring Provider Family Medicine; Visit Provider Surgery
DX: I87.2 Venous insufficiency (chronic) (peripheral) (principal); I11.0 Hypertensive heart disease with heart failure; I50.9 Heart failure, unspecified; E66.01 Morbid (severe) obesity due to excess calories; Z68.41 Body mass index [BMI] 40.0-44.9, adult; E11.9 Type 2 diabetes mellitus without complications; G47.33 Obstructive sleep apnea (adult) (pediatric); E03.9 Hypothyroidism, unspecified; R60.0 Localized edema; M79.89 Other specified soft tissue disorders; R09.89 Other specified symptoms and signs involving the circulatory and respiratory systems; M79.3 Panniculitis, unspecified; Z79.84 Long term (current) use of oral hypoglycemic drugs; Z79.890 Hormone replacement therapy; Z79.899 Other long term (current) drug therapy; Z96.653 Presence of artificial knee joint, bilateral
CPT/HCPCS: 99213; G0463